=== PATIENT | female | born 1940 | race American Indian/Alaskan Native ===

== ENCOUNTER 2018-07-24 19:49 | Inpatient (IN) | payer MEDICARE ==
--- NOTE | 2018-07-24 20:23 | Cat Scan Report ---
FINAL REPORT PROCEDURE: CT HEAD/BRAIN WO CON TECHNIQUE: Computerized tomography of the head was performed without contrast material. HISTORY: neuro deficits < 6hrs or sx present upon awakening COMPARISON: No prior studies are available for comparison. FINDINGS: Skull and scalp: Normal. Paranasal sinuses: Normal. Ventricles and subarachnoid spaces: Are prominent consistent with cerebral atrophy appropriate for patient's age.. Cerebrum: Mild degree bilateral periventricular nonspecific white matter hypodensity is noted. An acute intra-axial or extra-axial hemorrhage or mass effect is not identified.. Cerebellum and brainstem: An irregular ill-defined hypodense lesion is noted involving the brian on the right side measuring 0.9 centimeters.. Vasculature: Atherosclerotic calcification is noted involving internal carotid and vertebral arteries.. Comments: None. IMPRESSION: No acute intracranial hemorrhage in 0.9 centimeter irregular ill-defined hypodense lesion of brian most likely represents a subacute versus chronic infarct. Comparison with any prior studies would be of help.
--- NOTE | 2018-07-24 21:01 | Emergency Department Report ---
ED Neuro Deficit HPI - General Chief Complaint: Neuro Symptoms/Deficit Stated Complaint: FALL,WEAKNESS, Time Seen by Provider: 07/24/18 20:25 Source: patient, family Mode of arrival: Wheelchair Limitations: Physical Limitation - History of Present Illness Initial Comments: Ms Isaac is 78 years old female with history of diabetes, hypertension and hyperlipidemia. Patient recently from [place] to live with her daughter. Patient brought to the ER accompanied by her daughter stating that her mother has been falling for the last 3 days. She stated that she had unsteady gait and she is off balance. She also stated that she noted that she has a weakness and heaviness in her left upper extremity and left leg. She also noticed that she has change in her speech she is having difficulty finding words and she is slow to speak. -: days(s) Location: speech, dysarthria, left arm, left leg Presenting Symptoms: Present: Weak/Paralyzed One Side, Unable to Speak Clearly History of same: No Place: home Severity: moderate Quality: weak, numb Improves With: none - Related Data Allergies/Adverse Reactions: Allergies Allergy/AdvReac Type Severity Reaction Status Date / Time No Known Allergies Allergy Unverified 07/24/18 20:01 ED Review of Systems ROS: Stated complaint: FALL,WEAKNESS, Other details as noted in HPI Comment: All other systems reviewed and negative Constitutional: denies: chills, fever ENT: denies: ear pain Respiratory: denies: cough, shortness of breath Cardiovascular: denies: chest pain, palpitations, dyspnea on exertion Gastrointestinal: denies: abdominal pain, nausea, vomiting Neurological: weakness, numbness, paresthesias, abnormal gait. denies: headache , confusion, vertigo ED Past Medical Hx - Past Medical History Previous Medical History?: Yes Hx Hypertension: Yes Hx Diabetes: Yes Hx of Cancer: Yes (Breast) Hx Arthritis: Yes Additional medical history: High Cholesterol, Chronic Pain - Surgical History Additional Surgical History: Hysterectomy. Implanted TENS unit Right hip - Social History Smoking Status: Never Smoker Substance Use Type: None ED Neuro Physical Exam - General Limitations: Physical Limitation General appearance: alert, in no apparent distress Suspected Stroke: Yes - Head Head exam: Present: atraumatic, normocephalic, normal inspection - Eye Eye exam: Present: normal appearance, PERRL - ENT ENT exam: Present: normal exam, normal orophraynx, mucous membranes moist, normal external ear exam - Neck Neck exam: Present: normal inspection, full ROM. Absent: tenderness, meningismus, lymphadenopathy, thyromegaly - Respiratory Respiratory exam: Present: normal lung sounds bilaterally. Absent: respiratory distress, wheezes, rales, rhonchi, stridor, chest wall tenderness, accessory muscle use, decreased breath sounds, prolonged expiratory - Cardiovascular Cardiovascular Exam: Present: regular rate, normal rhythm, normal heart sounds - GI/Abdominal GI/Abdominal exam: Present: soft, normal bowel sounds. Absent: distended, tenderness, guarding, rebound, rigid, organomegaly, mass, bruit, pulsatile mass - Extremities Exam Extremities exam: Present: normal inspection, full ROM, normal capillary refill. Absent: pedal edema, calf tenderness - Back Exam Back exam: Present: normal inspection, full ROM. Absent: tenderness, CVA tenderness (R), CVA tenderness (L), muscle spasm, paraspinal tenderness, vertebral tenderness - Neurological Exam Neurological exam: Present: alert, oriented X3 - NIHSS Assessment Interval: 24 hours post onset of symptoms +-20 minutes 1a. Level of Consciousness: alert/keenly responsive 1b. LOC Questions: answers 1 question correctly 1c. LOC Commands: performs 1 task correctly 2. Best Gaze: normal 3. Visual: no visual loss 4. Facial Palsy: normal symmetrical movement 5b. Motor Arm Right: no drift 5a. Motor Arm Left: drift 6a. Motor Leg Left: some gravity effort 6b. Motor Leg Right: no drift 7. Limb Ataxia: present 1 limb 8. Sensory: mild/moderate sensory loss 9. Best Language: mild/moderate aphasia 10. Dysarthria: mild/moderate dysarthria 11. Extinction/Inattention: no abnormality Total Score: 9 Stroke Severity: Moderate Stroke - Psychiatric Psychiatric exam: Present: normal affect, normal mood - Skin Skin exam: Present: warm, intact, normal color ED Course Vital Signs 07/24/18 07/24/18 07/24/18 19:54 20:26 20:31 Temperature 98.7 F Pulse Rate 73 69 68 Respiratory 18 12 14 Rate Blood Pressure 215/79 O2 Sat by Pulse 100 99 100 Oximetry 07/24/18 07/24/18 07/24/18 20:40 20:45 21:01 Temperature Pulse Rate 74 68 Respiratory 18 17 14 Rate Blood Pressure 166/60 O2 Sat by Pulse 100 95 Oximetry 07/24/18 07/24/18 07/24/18 21:15 21:31 21:45 Temperature Pulse Rate 67 70 68 Respiratory 13 15 9 L Rate Blood Pressure 166/60 162/76 162/76 O2 Sat by Pulse 99 93 99 Oximetry 07/24/18 22:00 Temperature Pulse Rate 70 Respiratory 17 Rate Blood Pressure 152/68 O2 Sat by Pulse 91 Oximetry - Lab Data Result diagrams: 07/24/18 22:19 07/24/18 21:00 Lab Results 07/24/18 07/24/18 07/24/18 Range/Units 19:58 21:00 21:00 WBC TNR RBC TNR Hgb TNR Hct TNR MCV TNR MCH TNR MCHC TNR RDW TNR Plt Count TNR Lymph % (Auto) TNR [place] % (Auto) TNR Eos % (Auto) TNR Baso % (Auto) TNR Lymph # TNR [place] # TNR Eos # TNR Baso # TNR Add Manual Diff TNR Seg Neutrophils % TNR Seg Neutrophils # TNR PT 14.1 (12.2-14.9) Sec. INR 1.04 (0.87-1.13) APTT < 20.0 L (24.2-36.6) Sec. Thrombin Time (15.1-19.6) Sec. Sodium (137-145) mmol/L Potassium (3.6-5.0) mmol/L Chloride (98-107) mmol/L Carbon Dioxide (22-30) mmol/L Anion Gap mmol/L BUN (7-17) mg/dL Creatinine (0.7-1.2) mg/dL Estimated GFR ml/min BUN/Creatinine Ratio % Glucose (65-100) mg/dL POC Glucose 217 H (70-105) Calcium (8.4-10.2) mg/dL Troponin T (0.00-0.029) ng/mL 07/24/18 07/24/18 07/24/18 Range/Units 21:00 21:00 22:19 WBC 6.6 RBC 4.04 Hgb 12.2 Hct 36.9 MCV 91 MCH 30 MCHC 33 RDW 14.7 Plt Count 161 Lymph % (Auto) 31.0 [place] % (Auto) 13.5 H Eos % (Auto) 2.8 Baso % (Auto) 0.8 Lymph # 2.0 [place] # 0.9 H Eos # 0.2 Baso # 0.1 Add Manual Diff Seg Neutrophils % 51.9 Seg Neutrophils # 3.4 PT (12.2-14.9) Sec. INR (0.87-1.13) APTT (24.2-36.6) Sec. Thrombin Time 14.6 L (15.1-19.6) Sec. Sodium 137 (137-145) mmol/L Potassium 4.1 (3.6-5.0) mmol/L Chloride 103.7 (98-107) mmol/L Carbon Dioxide 19 L (22-30) mmol/L Anion Gap 18 mmol/L BUN 16 (7-17) mg/dL Creatinine 0.9 (0.7-1.2) mg/dL Estimated GFR > 60 ml/min BUN/Creatinine Ratio 18 % Glucose 211 H (65-100) mg/dL POC Glucose (70-105) Calcium 9.7 (8.4-10.2) mg/dL Troponin T < 0.010 (0.00-0.029) ng/mL - EKG Data -: EKG Interpreted by Ok EKG shows normal: sinus rhythm Rate: normal Interpretation: no acute changes - Radiology Data Radiology results: report reviewed Referring Physician: EMANUEL MORENO Patient Name: MELISSA ISAAC Date of : 1940 Sex: Female Report Date: 2018-07-24 Report Status: [place] [address] Cat Scan Report Signed Patient: MELISSA ISAAC MR#: [id number] : 1940 Acct:[id number] Age/Sex: 78 / F ADM Date: 07/24/18 Loc: ED Attending Dr: Ordering Physician: EMANUEL MORENO MD Date of Service: 07/24/18 Procedure(s): CT head/brain wo con Accession Number(s): [id number] cc: EMANUEL MORENO MD FINAL REPORT PROCEDURE: CT HEAD/BRAIN WO CON TECHNIQUE: Computerized tomography of the head was performed without contrast material. HISTORY: neuro deficits lt; 6hrs or sx present upon awakening COMPARISON: No prior studies are available for comparison. FINDINGS: Skull and scalp: Normal. Paranasal sinuses: Normal. Ventricles and subarachnoid spaces: Are prominent consistent with cerebral atrophy appropriate for patient's age.. Cerebrum: Mild degree bilateral periventricular nonspecific white matter hypodensity is noted. An acute intra-axial or extra-axial hemorrhage or mass effect is not identified.. Cerebellum and brainstem: An irregular ill-defined hypodense lesion is noted involving the brian on the right side measuring 0.9 centimeters.. Vasculature: Atherosclerotic calcification is noted involving internal carotid and vertebral arteries.. Comments: None. IMPRESSION: No acute intracranial hemorrhage in 0.9 centimeter irregular ill-defined hypodense lesion of brian most likely represents a subacute versus chronic infarct. Comparison with any prior studies would be of help. Transcribed By: [facility] Dictated By: RAJESH WEN Electronically Authenticated By: RAJESH WEN Signed Date/Time: 07/24/182022 Referring Physician: YUSRA DYKES Patient Name: MELISSA ISAAC Date of : 1940 Sex: Female Report Date: 2018-07-24 Report Status: Finalized Findings [facility] [address] [place] [address] XRay Report Signed Patient: MELISSA ISAAC MR#: [id number] : 1940 Acct:[id number] Age/Sex: 78 / F ADM Date: 07/24/18 Loc: ED Attending Dr: Ordering Physician: YUSRA DYKES Date of Service: 07/24/18 Procedure(s): XR hip 2-3V LT Accession Number(s): [id number] cc: YUSRA DYKES Fluoro Time In Minutes: FINAL REPORT PROCEDURE: XR HIP 2-3V LT TECHNIQUE: LEFT hip radiographs, 2 views each, including AP view of the pelvis. HISTORY: left hip pain COMPARISON: No prior studies are available for comparison. FINDINGS: Fracture (s) and/or Dislocation(s): None . Joint space(s): There is mild degree narrowing of bilateral hip joint spaces with mild degree osteophyte formation. Bilateral facet degenerative changes are noted at L4-5. Soft tissues: Normal. Bone mineralization: Normal. Foreign bodies: None. IMPRESSION: No acute fracture Osteoarthritis bilateral hip joints Lower lumbar facet arthropathy Transcribed By: [facility] [place] Dictated By: RAJESH WEN Electronically Authenticated By: RAJESH WEN Signed Date/Time: 07/24/182206 DD/ 06 TD/TT: 07/24/182206 DD/ 22 TD/TT: 07/24/182022 Referring Physician: YUSRA DYKES Patient Name: MELISSA ISAAC Date of : 1940 Sex: Female Report Date: 2018-07-24 Report Status: Finalized Findings [facility] [address] [place] [address] XRay Report Signed Patient: MELISSA ISAAC MR#: [id number] : 1940 Acct:[id number] Age/Sex: 78 / F ADM Date: 07/24/18 Loc: ED Attending Dr: Ordering Physician: YUSRA DYKES Date of Service: 07/24/18 Procedure(s): XR chest 1V ap Accession Number(s): [id number] cc: YUSRA DYKES Fluoro Time In Minutes: FINAL REPORT PROCEDURE: XR CHEST 1V AP TECHNIQUE: Chest radiograph anteroposterior view. CPT 69957 HISTORY: stroke COMPARISON: No prior studies are available for comparison. FINDINGS: Heart: Normal. Mediastinum/Vessels: Normal. Lungs/Pleural space: There is mild degree prominence of interstitial markings. A central retrocardiac density is identified measuring approximately 4 centimeters on the right side. There are no confluent infiltrates. Pleural spaces are clear. A small radiopaque metallic density measuring about 2 millimeters is noted projected over the left lower hemithorax.. Bony thorax: No acute osseous abnormality. Life support devices: None. IMPRESSION: Prominent interstitial markings most likely represent interstitial edema versus interstitial fibrosis. 4 centimeter right retrocardiac density may represent focal eventration of diaphragm versus hiatal hernia versus a mass lesion. A two view chest study is recommended for further evaluation.. Transcribed By: [facility] [place] Dictated By: RAJESH WEN Electronically Authenticated By: RAJESH WEN Signed Date/Time: 07/24/182200 DD/ 00 TD/TT: 07/24/182200 - Medical Decision Making Ms Isaac is 78 years old female with history of diabetes, hypertension and hyperlipidemia. Patient recently from [place] to live with her daughter. Patient brought to the ER accompanied by her daughter stating that her mother has been falling for the last 3 days. She stated that she had unsteady gait and she is off balance. She also stated that she noted that she has a weakness and heaviness in her left upper extremity and left leg. She also noticed that she has change in her speech she is having difficulty finding words and she is slow to speak. Patient CT scan brain showed a subacute infarct. I discussed the patient is Dr. Dunia Garcia, she agreed to admit the patient to medical service for stroke workup. Critical Care Time: Yes Critical care time in (mins) excluding proc time.: 30 Critical care attestation.: If time is entered above; I have spent that time in minutes in the direct care of this critically ill patient, excluding procedure time. ED Disposition Clinical Impression: CVA (cerebral vascular accident) Disposition: -09 OP ADMIT IP TO THIS HOSP Is pt being admited?: Yes Condition: Stable
[2018-07-24] MEDS ORDERED: BABY ASPIRIN PO ONE (21:04)
[2018-07-24 21:25] LABS: Hematocrit TNR % (30.3-42.9); Hemoglobin TNR gm/dl (10.1-14.3); Mean Corpuscular HGB Conc TNR % (30-34); Mean Corpuscular Hemoglobin TNR pg (28-32); Mean Corpuscular Volume TNR fl (79-97); Platelet Count TNR K/mm3 (140-440); Red Blood Count TNR M/mm3 (3.65-5.03); Red Cell Distribution Width TNR % (13.2-15.2)
[2018-07-24 21:26] LABS: Basophils % (Auto) TNR % (0.0-1.8); Eosinophils % (Auto) TNR % (0.0-4.3); Lymphocytes # (Auto) TNR K/mm3 (1.2-5.4); Lymphocytes % (Auto) TNR % (13.4-35.0); Mean Platelet Volume TNR fl (6-12); Monocytes # (Auto) TNR K/mm3 (0.0-0.8); Monocytes % (Auto) TNR % (0.0-7.3)
[2018-07-24 21:27] LABS: Basophils # (Auto) TNR K/mm3 (0.0-0.1); Eosinophils # (Auto) TNR K/mm3 (0.0-0.4)
[2018-07-24 21:28] LABS: BUN/Creatinine Ratio 18; Blood Urea Nitrogen 16 mg/dL (7-17); Calcium 9.7 mg/dL (8.4-10.2); Hemolysis Index 17; INR 1.04 (0.87-1.13)
[2018-07-24 21:35] LABS: Partial Thromboplastin Time < 20.0 Sec. (24.2-36.6)
--- NOTE | 2018-07-24 22:02 | XRay Report ---
FINAL REPORT PROCEDURE: XR CHEST 1V AP TECHNIQUE: Chest radiograph anteroposterior view. CPT 23619 HISTORY: stroke COMPARISON: No prior studies are available for comparison. FINDINGS: Heart: Normal. Mediastinum/Vessels: Normal. Lungs/Pleural space: There is mild degree prominence of interstitial markings. A central retrocardiac density is identified measuring approximately 4 centimeters on the right side. There are no confluent infiltrates. Pleural spaces are clear. A small radiopaque metallic density measuring about 2 millimeters is noted projected over the left lower hemithorax.. Bony thorax: No acute osseous abnormality. Life support devices: None. IMPRESSION: Prominent interstitial markings most likely represent interstitial edema versus interstitial fibrosis. 4 centimeter right retrocardiac density may represent focal eventration of diaphragm versus hiatal hernia versus a mass lesion. A two view chest study is recommended for further evaluation..
--- NOTE | 2018-07-24 22:08 | XRay Report ---
FINAL REPORT PROCEDURE: XR HIP 2-3V LT TECHNIQUE: LEFT hip radiographs, 2 views each, including AP view of the pelvis. HISTORY: left hip pain COMPARISON: No prior studies are available for comparison. FINDINGS: Fracture (s) and/or Dislocation(s): None . Joint space(s): There is mild degree narrowing of bilateral hip joint spaces with mild degree osteophyte formation. Bilateral facet degenerative changes are noted at L4-5. Soft tissues: Normal. Bone mineralization: Normal. Foreign bodies: None. IMPRESSION: No acute fracture Osteoarthritis bilateral hip joints Lower lumbar facet arthropathy
[2018-07-24] MEDS ORDERED: MORPHINE IV ONE (22:15)
[2018-07-24] MEDS ORDERED: ZOFRAN IV ONE (22:15)
[2018-07-24 22:47] LABS: Basophils # (Auto) 0.1 K/mm3 (0.0-0.1); Basophils % (Auto) 0.8 % (0.0-1.8); Eosinophils # (Auto) 0.2 K/mm3 (0.0-0.4); Eosinophils % (Auto) 2.8 % (0.0-4.3); Hematocrit 36.9 % (30.3-42.9); Hemoglobin 12.2 gm/dl (10.1-14.3); Mean Corpuscular HGB Conc 33 % (30-34); Mean Corpuscular Hemoglobin 30 pg (28-32); Mean Corpuscular Volume 91 fl (79-97); Monocytes # (Auto) 0.9 K/mm3 (0.0-0.8); Monocytes % (Auto) 13.5 % (0.0-7.3); Platelet Count 161 K/mm3 (140-440); Red Blood Count 4.04 M/mm3 (3.65-5.03); Red Cell Distribution Width 14.7 % (13.2-15.2)
--- NOTE | 2018-07-24 23:07 | History and Physical Report ---
History of Present Illness Date of examination: 07/24/18 History of present illness: 78-year-old woman with a history of breast cancer, hypertension, diabetes, hyperlipidemia comes emergency room for evaluation of left-sided weakness and slurred speech to started on Wednesday. The patient had refused to come to the hospital at the onset of her symptoms. Review of systems Constitutional: no weight loss, chills, fever Ears, eyes, nose, mouth and throat: no nasal congestion, no nasal discharge, no sinus pressure, no vision change, no red eye. Neck: No neck pain or rigidity. Cardiovascular: no chest pain, palpitations Respiratory: no cough, shortness of breath Gastrointestinal: no abdominal pain hematochezia Genitourinary : no frequency , no hematuria Musculoskeletal: no joint swelling or muscle ache Integumentary: no rash, no pruritis Neurological: no parathesias, no numbness Endocrine: no cold or heat intolerance, no polyuria or polydipsia Hematologic/Lymphatic: no easy bruising, no easy bleeding, no gland swelling Allergic/Immunologic: no urticaria, no angioedema. PAST MEDICAL HISTORY: breast cancer, hypertension, diabetes, hyperlipidemia PAST SURGICAL HISTORY: Hysterectomy SOCIAL HISTORY: No alcohol, no drugs, tobacco FAMILY HISTORY: Hypertension Medications and Allergies Allergies Allergy/AdvReac Type Severity Reaction Status Date / Time No Known Allergies Allergy Verified 07/24/18 23:08 Home Medications Medication Instructions Recorded Confirmed Last Taken Type Anastrozole [Arimidex] 1 mg PO QDAY 07/24/18 07/24/18 Unknown History Atorvastatin Calcium 80 mg PO DAILY 07/24/18 07/24/18 Unknown History Carvedilol [Coreg] 25 mg PO BID 07/24/18 07/24/18 Unknown History Insulin Aspart [Novolog] 25 units SQ BID 07/24/18 07/24/18 Unknown History Insulin Detemir [Levemir VIAL] 0 unit SQ QHS 07/24/18 07/24/18 Unknown History Milk Thistle 240 mg PO DAILY 07/24/18 07/24/18 Unknown History Naproxen 500 mg PO Q12HR 07/24/18 07/24/18 Unknown History Sertraline [Zoloft] 25 mg PO QDAY 07/24/18 07/24/18 Unknown History Exam - Physical Exam Narrative exam: Gen. appearance: Patient lying in bed, no apparent distress HEENT: Normocephalic, atraumatic, pupils equally round and reactive to light, extraocular movement intact, and no sclericterus,. No JVD or thyromegaly or nodule,neck supple, no carotid bruit ,mucous membranes moist, no exudate or erythema Heart: S1, S2, regular rate and rhythm Lungs: Clear bilaterally, breathing comfortable Abdomen: Positive bowel sounds, tender LLQ, nondistended, no organomegaly Extremity:no edema cyanosis, clubbing Skin: no rash, dry, warm Neuro: Oriented 3, cranial nerves II-12 intact, speech is slurred, left-sided weakness 3/5and sensory intact - Constitutional Vitals: Temp Pulse Resp BP Pulse Ox 98.7 F 70 17 152/68 91 07/24/18 19:54 07/24/18 22:00 07/24/18 22:00 07/24/18 22:00 07/24/18 22:00 Results - Labs CBC & Chem 7: 07/24/18 22:19 07/24/18 21:00 Labs: Abnormal lab results 07/24/18 07/24/18 07/24/18 Range/Units 19:58 21:00 21:00 [place] % (Auto) (0.0-7.3) % [place] # (0.0-0.8) K/mm3 APTT < 20.0 L (24.2-36.6) Sec. Thrombin Time (15.1-19.6) Sec. Carbon Dioxide 19 L (22-30) mmol/L Glucose 211 H (65-100) mg/dL POC Glucose 217 H (70-105) 07/24/18 07/24/18 Range/Units 21:00 22:19 [place] % (Auto) 13.5 H (0.0-7.3) % [place] # 0.9 H (0.0-0.8) K/mm3 APTT (24.2-36.6) Sec. Thrombin Time 14.6 L (15.1-19.6) Sec. Carbon Dioxide (22-30) mmol/L Glucose (65-100) mg/dL POC Glucose (70-105) - Imaging and Cardiology CT Scan - head: report reviewed Assessment and Plan xray of the hip reviewed Assessment Acute CVA Abdominal pain Hypertension Diabetes History of breast cancer Hyperlipidemia Plan Admit to medicine Obtain MRI, carotid, echo Consult neurology, physical and occupational therapy Doing yard checks, cell screen Start plavix, statin, IV hydralazine for blood pressure control J fingersticks initiate insulin sliding scale Check CAT scan of the abdomen, tender in the left lower quadrant DVT prophylaxis
[2018-07-24] MEDS ORDERED: SODIUM CHLORIDE FLUSH SYRINGE 10 ML IV PRN (23:39)
[2018-07-24] MEDS ORDERED: ZOFRAN IV PRN (23:39)
[2018-07-24] MEDS ORDERED: APRESOLINE ONE (23:58)
[2018-07-25] MEDS: APRESOLINE IV PRN ×3 (00:12→17:01)
--- NOTE | 2018-07-25 00:30 | Cat Scan Report ---
FINAL REPORT EXAM: CT ABDOMEN PELVIS WO CON HISTORY: abd pain, llq TECHNIQUE: Routine axial imaging was obtained of the abdomen and pelvis without IV contrast. Sagittal and coronal reconstructions were reviewed. FINDINGS: The lung bases are negative for infiltrates or effusions. There is a small hiatal hernia. The liver, gallbladder, biliary tree, pancreas, spleen, and adrenal glands appear normal. The kidneys show no evidence of stones or hydronephrosis. There is calcification of the abdominal aorta which is normal caliber. The bowel loops reveal numerous uncomplicated diverticula in the colon. There is residual oral contrast within the colon. There is no evidence of diverticulitis. The appendix is not seen. There is no evidence of free fluid or adenopathy. The uterus has been removed. The bladder appears normal. The skeletal structures reveal extensive multilevel disc degeneration in the lumbar spine with chronic compression fracture of L3. IMPRESSION: Colonic diverticulosis. No evidence of diverticulitis. No acute process in the abdomen and pelvis. Small hiatal hernia. No evidence of renal stone or hydronephrosis. Hysterectomy. Appendix not seen. Extensive arthritic changes in the lumbar spine.
[2018-07-25] MEDS ORDERED: D50W (25GM) Syringe IV PRN (01:52)
[2018-07-25] MEDS ORDERED: APRESOLINE IV ONE (02:35)
[2018-07-25 07:55] LABS: Chol/HDL Ratio 2.66 %
[2018-07-25] MEDS: HumaLOG SUB-Q SCH ×4 (08:27→23:08)
[2018-07-25] MEDS ORDERED: NON-FORMULARY (Anastrozole [Arimidex] 1 MG) PO SCH (10:00)
[2018-07-25] MEDS ORDERED: ASPIRIN PR SCH (10:00)
[2018-07-25] MEDS ORDERED: NON-FORMULARY (Atorvastatin Calcium [Atorvastatin Calcium] 80 MG) PO SCH (10:00)
[2018-07-25] MEDS ORDERED: LOVENOX SUB-Q SCH (10:00)
[2018-07-25] MEDS: PLAVIX PO SCH (10:56)
[2018-07-25] MEDS: ZOLOFT PO SCH (10:57)
[2018-07-25] MEDS: LOVENOX SUB-Q SCH (11:03)
[2018-07-25] MEDS ORDERED: AFLURIA QUAD 2018-2019 SYRINGE IM ONE (12:00)
[2018-07-25] MEDS: MORPHINE IV PRN ×2 (13:36→20:39)
--- NOTE | 2018-07-25 16:04 | Progress Note ---
Assessment and Plan Assessment and plan: 78-year-old woman with a history of breast cancer, hypertension, diabetes, hyperlipidemia comes emergency room for evaluation of left-sided weakness and slurred speech to started on Wednesday. The patient had refused to come to the hospital at the onset of her symptoms. Acute CVA - CT head showed that appointment centimeter hypodense lesion in the right brian subacute versus chronic - Carotid Doppler is a 50% stenosis, echo and CTA is pending, we can't do MRI because of AICD - Speech and swallow evaluation, PT/OT, Neurology consult - On Plavix and statin Diabetes mellitus - Sliding scale insulin Hypertension - permissive hypertension, on hydralazine PRN when it is too high Dementia - Supportive care DVT prophylaxis - On Lovenox Disposition - Patient may need rehab once work up and evaluation is completed History Interval history: Patient was seen and evaluated this morning, patient has left sided weakness. Hospitalist Physical - Physical exam Narrative exam: Not in cardiopulmonary distress. The patient is obese. Vital signs as documented. Head exam is unremarkable. No scleral icterus . Neck is without jugular venous distension, thyromegaly, or carotid bruits. Lungs are clear to auscultation. Cardiac exam reveals regular rate and Rhythm. First and second heart sounds normal. No murmurs, rubs or gallops. Abdominal exam reveals normal bowel sounds, no masses, no organomegaly and no aortic enlargement. Extremities are nonedematous and both femoral and pedal pulses are normal. 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 - Constitutional Vitals: Temp Pulse Resp BP Pulse Ox 98.6 F 61 19 142/48 96 07/25/18 10:32 07/25/18 13:00 07/25/18 10:32 07/25/18 10:32 07/25/18 10:32 Results - Labs CBC & Chem 7: 07/24/18 22:19 07/24/18 21:00 Labs: Laboratory Last Values WBC 6.6 K/mm3 (4.5-11.0) 07/24/18 22:19 RBC 4.04 M/mm3 (3.65-5.03) 07/24/18 22:19 Hgb 12.2 gm/dl (10.1-14.3) 07/24/18 22:19 Hct 36.9 % (30.3-42.9) 07/24/18 22:19 MCV 91 fl (79-97) 07/24/18 22:19 MCH 30 pg (28-32) 07/24/18 22:19 MCHC 33 % (30-34) 07/24/18 22:19 RDW 14.7 % (13.2-15.2) 07/24/18 22:19 Plt Count 161 K/mm3 (140-440) 07/24/18 22:19 Lymph % (Auto) 31.0 % (13.4-35.0) 07/24/18 22:19 [place] % (Auto) 13.5 % (0.0-7.3) H 07/24/18 22:19 Eos % (Auto) 2.8 % (0.0-4.3) 07/24/18 22:19 Baso % (Auto) 0.8 % (0.0-1.8) 07/24/18 22:19 Lymph # 2.0 K/mm3 (1.2-5.4) 07/24/18 22:19 [place] # 0.9 K/mm3 (0.0-0.8) H 07/24/18 22:19 Eos # 0.2 K/mm3 (0.0-0.4) 07/24/18 22:19 Baso # 0.1 K/mm3 (0.0-0.1) 07/24/18 22:19 Add Manual Diff TNR 07/24/18 21:00 Seg Neutrophils % 51.9 % (40.0-70.0) 07/24/18 22:19 Seg Neutrophils # 3.4 K/mm3 (1.8-7.7) 07/24/18 22:19 PT 14.1 Sec. (12.2-14.9) 07/24/18 21:00 INR 1.04 (0.87-1.13) 07/24/18 21:00 APTT < 20.0 Sec. (24.2-36.6) L 07/24/18 21:00 Thrombin Time 14.6 Sec. (15.1-19.6) L 07/24/18 21:00 Sodium 137 mmol/L (137-145) 07/24/18 21:00 Potassium 4.1 mmol/L (3.6-5.0) 07/24/18 21:00 Chloride 103.7 mmol/L (98-107) 07/24/18 21:00 Carbon Dioxide 19 mmol/L (22-30) L 07/24/18 21:00 Anion Gap 18 mmol/L 07/24/18 21:00 BUN 16 mg/dL (7-17) 07/24/18 21:00 Creatinine 0.9 mg/dL (0.7-1.2) 07/24/18 21:00 Estimated GFR > 60 ml/min 07/24/18 21:00 BUN/Creatinine Ratio 18 % 07/24/18 21:00 Glucose 211 mg/dL (65-100) H 07/24/18 21:00 POC Glucose 259 (70-105) H 07/25/18 06:04 Calcium 9.7 mg/dL (8.4-10.2) 07/24/18 21:00 Troponin T < 0.010 ng/mL (0.00-0.029) 07/24/18 21:00 Triglycerides 121 mg/dL (2-149) 07/25/18 06:35 Cholesterol 141 mg/dL (50-199) 07/25/18 06:35 LDL Cholesterol Direct 78 mg/dL (50-130) 07/25/18 06:35 HDL Cholesterol 53 mg/dL (40-59) 07/25/18 06:35 Cholesterol/HDL Ratio 2.66 % 07/25/18 06:35
[2018-07-25] MEDS ORDERED: XANAX PO SCH (18:00)
--- NOTE | 2018-07-25 20:15 | Consultation ---
History of Present Illness Consult date: 07/25/18 Requesting physician: SONI GERMAN Reason for Consult: stroke Chief complaint: legs giving out kellee left, slurred speech History of present illness: This 78-year-old -[place] female states that 3 nights ago her legs gave out on her and did so again the next night. The first time she was trying to get out of bed and her legs collapsed especially on the left. She has had some numbness of her hands. She hit her head one of these times. She's had some slurring of speech still noticeable to her family. CT scan shows old right pontine lacune and some bilateral white matter disease with mild cerebellar and moderate cerebral atrophy. She is very hard of hearing and the hearing aids don 't help her. Says she is on something that has aspirin in it but isn't on aspirin itself though is on a statin. Past History Past Medical History: diabetes, hypertension, hyperlipidemia Past Surgical History: mastectomy (breast cancer surgery 2 years ago followed by chemotherapy and radiation, finished chemotherapy a year ago), Other (lumbar spine surgery in [facility] 8-10 years ago. Implantation of right hip TENS unit apparently some years ago which was redone this past year in [place] by orthopedist Dr. 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 denies: smoking, alcohol abuse, prescription drug abuse, IV drug use Family history: hypertension (several siblings), stroke (mother and sister and sororal niece (the one with epilepsy)), other (epilepsy and sororal niece. Brain aneurysm in her daughter.) Medications and Allergies Allergies Allergy/AdvReac Type Severity Reaction Status Date / Time No Known Allergies Allergy Verified 07/24/18 23:08 Home Medications Medication Instructions Recorded Confirmed Last Taken Type Anastrozole [Arimidex] 1 mg PO QDAY 07/24/18 07/24/18 Unknown History Atorvastatin Calcium 80 mg PO DAILY 07/24/18 07/24/18 Unknown History Carvedilol [Coreg] 25 mg PO BID 07/24/18 07/24/18 Unknown History Insulin Aspart [Novolog] 25 units SQ BID 07/24/18 07/24/18 Unknown History Insulin Detemir [Levemir VIAL] 0 unit SQ QHS 07/24/18 07/24/18 Unknown History Milk Thistle 240 mg PO DAILY 07/24/18 07/24/18 Unknown History Naproxen 500 mg PO Q12HR 07/24/18 07/24/18 Unknown History Sertraline [Zoloft] 25 mg PO QDAY 07/24/18 07/24/18 Unknown History Active Meds: Active Medications Alprazolam (Xanax) 2 mg PO UNIVERSITY ADMINISTRATOR [facility] Atorvastatin Calcium (Lipitor) 80 mg PO DAILY [facility] Last Admin: 07/25/18 10:56 Dose: Not Given Clopidogrel Bisulfate (Plavix) 75 mg PO QDAY [facility] Last Admin: 07/25/18 10:56 Dose: Not Given Dextrose (D50w (25gm) Syringe) 50 ml IV PRN PRN PRN Reason: Hypoglycemia Enoxaparin Sodium (Lovenox) 40 mg SUB-Q QDAY@1000 [facility] Last Admin: 07/25/18 11:03 Dose: 40 mg Hydralazine HCl (Apresoline) 5 mg IV Q6HR PRN PRN Reason: Hypertension Last Admin: 07/25/18 17:01 Dose: 5 mg Insulin Human Lispro (Humalog) 0 unit SUB-Q [facility]; Protocol Last Admin: 07/25/18 17:00 Dose: 3 unit Miscellaneous Medication (Anastrozole [Arimidex]) 1 mg PO QDAY [facility] Morphine Sulfate (Morphine) 2 mg IV Q4H PRN PRN Reason: Pain, Moderate (4-6) Last Admin: 07/25/18 13:36 Dose: 2 mg Ondansetron HCl (Zofran) 4 mg IV Q4H PRN PRN Reason: Nausea And Vomiting Sertraline HCl (Zoloft) 25 mg PO QDAY [facility] Last Admin: 07/25/18 10:57 Dose: Not Given Sodium Chloride (Sodium Chloride Flush Syringe 10 Ml) 10 ml IV PRN PRN PRN Reason: LINE FLUSH Review of Systems All systems: negative (right frontal headaches with nausea and photophobia. Lightheadedness but not daily. Rule out snoring at times occasional pauses, dozing a lot for some years, not driving currently. Remote and short-term memory problems for 2 years.) Physical Examination - Vital Signs Vital Signs: Vital Signs Temp Pulse Resp BP Pulse Ox 98.7 F 73 18 215/79 100 07/24/18 19:54 07/24/18 19:54 07/24/18 19:54 07/24/18 19:54 07/24/18 19:54 - Physical Exam Narrative exam: General Appearance: well developed but moderately obese (per BMI) late 70s -[place] female in NAD, very hard of hearing, accompanied by her brother , daughter and [id number].. HEENT: atraumatic, normocephalic; no bruits, 2+ Toni without soreness or induration or enlargement, sclerae nonicteric. Oropharynx pink and moist. Neck: supple, no bruits. Heart: no murmur or extra sounds. Extremities: no clubbing, cyanosis or edema. 2+ dorsalis pedis pulses bilaterally. Neurologic Exam: Mental Status: Awake, alert, oriented X 3, speech is clear, names pen and tip of pen, and abstracts well. Names President and Manager Professional Development, serial 7's intact, no right-left confusion, gets 3 of 3 objects at 3 minutes, spells WORLD backwards correctly. Cranial Nerves: queen full, no papilledema, SVPs present, PERRLA, EOMs full without nystagmus or diplopia, facial sensation intact to pinprick and light touch, no facial weakness, Sanchez is midline, palate rises symmetrically to phonation, gags are slightly positive, shoulder shrug is 5 right and 4- left, tongue protrudes midline. Cerebellar: finger to nose dysmetric right more than left but quite reach on the left, heel to norwood intact right but cannot do on the left due to weakness. Sensory: Decreased to light touch and pinprick left side, intact vibrations. Double simultaneous stimulation is intact in lower legs but cannot feel the light touch in either foot with eyes closed. Motor Exam Upper Extremities: no drift or pronation, lifts left arm slowly but has to be helped to a vertical position though cannot reach her face, Jez are slow on the left. Painter And Grader Cork is 5 right and 4- left, tone is normal. No atrophy or fasciculations are noted visually. Motor Exam Lower Extremities: Moderate left leg lag,, lifts right leg 4 inches out bed and left leg 1 inch off the bed, iliopsoas is 5 right and 4+ left, quadriceps is 4+ right and 4- left, anterior tibials are 4+, gastrocnemius is 5 right and 5- left. Jez intact. Tone is normal. No atrophy or fasciculations are noted visually. Reflexes: Palmomental is positive on the right, snout is positive and jaw jerk is negative. Triceps are trace, biceps are 1 and brachioradialis are trace bilaterally. Mark's is negative bilaterally. Knee jerks are 0 becoming trace bilaterally with reinforcement and ankle jerks are 0 bilaterally even with reinforcement and without clonus. Toes are upgoing bilaterally to Babinski testing. - Assessment Assessment Interval: 24 hours post onset of symptoms +-20 minutes - Level of Consciousness 1a. Level of Consciousness: alert/keenly responsive - LOC Questions 1b. LOC Questions: answers 1 question correctly - LOC Command 1c. LOC Commands: performs 1 task correctly - Best Gaze 2. Best Gaze: normal - Visual 3. Visual: no visual loss - Facial Palsy 4. Facial Palsy: normal symmetrical movement - Motor Arm 5b. Motor Arm Right: no drift - Motor Leg 6a. Motor Leg Left: some gravity effort - Limb Ataxia 7. Limb Ataxia: present 1 limb - Sensory 8. Sensory: mild/moderate sensory loss - Best Language 9. Best Language: mild/moderate aphasia - Dysarthria 10. Dysarthria: mild/moderate dysarthria - Extinction and Inattention 11. Extinction/Inattention: no abnormality Results - Laboratory Findings CBC and BMP: 07/24/18 22:19 07/24/18 21:00 Abnormal Lab Findings: Abnormal Labs 07/24/18 07/24/18 07/24/18 19:58 21:00 21:00 [place]cd[place] % (Auto) Mcdonald # APTT < 20.0 L Thrombin Time Carbon Dioxide 19 L Glucose 211 H POC Glucose 217 H 07/24/18 07/24/18 07/25/18 21:00 22:19 06:04 [place]cd[place] % (Auto) 13.5 H Mcdonald # 0.9 H APTT Thrombin Time 14.6 L Carbon Dioxide Glucose POC Glucose 259 H 07/25/18 15:59 [place]cdonald % (Auto) Mcdonald # APTT Thrombin Time Carbon Dioxide Glucose POC Glucose 197 H Assessment and Plan Impression: 1. Left hemiparesis 2. Hypertension 3. Hyperlipidemia Plan: 1. Has been changed to Plavix which is reasonable. 2. I have ordered brain MRI asking at the radiologist be consulted as to whether it can be done since head is a fair distance from the implanted stimulator. I have sent a message to Dr. German suggesting he asked Dr. Heller of orthopedics whether he has a way to turn the stimulator back on since it apparently is not working. If not, Dr. German or covering hospitalist should check with Dr. Hugo, her orthopedist in [place]. 3. She is claustrophobic so I have ordered alprazolam for the brain MRI if it can be done. 60 minutes spent including discussion of reason to try to get brain MRI and need to consult orthopedics about turning the stimulator back on after MRI. If MRI cannot be done here, could be done likely at [place] where they are familiar with patients with implanted devices including pacemakers and defibrillators. Thank you for an interesting consultation on this pleasant late 70s lady.
[2018-07-26] MEDS: ZOLOFT PO SCH (10:42)
[2018-07-26] MEDS: PLAVIX PO SCH (10:43)
[2018-07-26] MEDS: MORPHINE IV PRN ×2 (10:43→16:09)
[2018-07-26] MEDS: LOVENOX SUB-Q SCH (10:44)
[2018-07-26] MEDS: HumaLOG SUB-Q SCH ×5 (10:45→23:52)
--- NOTE | 2018-07-26 10:47 | Cat Scan Report ---
CTA NECK: HISTORY: Stroke. TECHNIQUE: Helical CT following IV contrast. Sagittal and coronal reformatted images. 3D volume rendering technique. Stenosis was calculated using NASCET criteria. FINDINGS: The visualized aortic arch, innominate artery and proximal bilateral subclavian arteries are widely patent with less than 20% stenosis. Within the right carotid system: There is less than 20% stenosis. Within the left carotid system: Moderate irregular calcified plaque is identified in the left carotid bulb extending to the proximal left ICA. Stenosis in this area measures at least 40% by NASCET criteria. There is less than 20% stenosis throughout the remainder of the left carotid system.. The cervical vertebral arteries are patent with less than 20% stenosis. The left vertebral artery arises from the aortic arch. IMPRESSION: 40-50% stenosis in the proximal left ICA. See above. Consider correlation with carotid Doppler.
--- NOTE | 2018-07-26 10:50 | Cat Scan Report ---
CTA HEAD: HISTORY: Stroke. TECHNIQUE: Helical CT images after IV contrast with 0.625mm reformations. Sagittal and coronal reformats. Rotational MIP images. 3D volume rendering technique. FINDINGS: The arterial structures of the anterior and posterior circulations are patent throughout. No evidence for stenosis, occlusion or aneurysm. Moderate to large left posterior communicating artery is noted. IMPRESSION: Unremarkable CTA head.
--- NOTE | 2018-07-26 18:15 | Progress Note ---
Assessment and Plan Assessment and plan: 78-year-old woman with a history of breast cancer, hypertension, diabetes, hyperlipidemia comes emergency room for evaluation of left-sided weakness and slurred speech to started on Wednesday. The patient had refused to come to the hospital at the onset of her symptoms. Acute CVA - CT head showed that appointment centimeter hypodense lesion in the right brian subacute versus chronic - Carotid Doppler is a 50% stenosis, echo and CTA is pending, we can't do MRI because of Tens unit - Repeat CT negative - Speech and swallow evaluation, PT/OT, Neurology consult NOTED, - On Plavix and statin Acute on chronic Low back pain - Chronic more than acute per family -Orthopedics to assess the functionality of the implanted tens unit - Pain management and bowel regimen Diabetes mellitus - Sliding scale insulin Hypertension - permissive hypertension, on hydralazine PRN when it is too high Dementia - Supportive care DVT prophylaxis - On Lovenox Disposition - Patient may need rehab once work up and evaluation is completed - Anticipate in AM to SNF. awaiting Ortho eval History Interval history: Patient seen and examined, remains with abdominal pain bilateral and back pain. Daughters at bedside. Pain rated a 10/10 in intensity Hospitalist Physical - Physical exam Narrative exam: Not in cardiopulmonary distress. The patient is obese. Vital signs as documented. Head exam is unremarkable. No scleral icterus . Neck is without jugular venous distension, thyromegaly, or carotid bruits. Lungs are clear to auscultation. Cardiac exam reveals regular rate and Rhythm. First and second heart sounds normal. No murmurs, rubs or gallops. Abdominal exam reveals normal bowel sounds, no masses, no organomegaly and no aortic enlargement. Tender bilateral lower quadrants Extremities are nonedematous and both femoral and pedal pulses are normal. 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 - Constitutional Vitals: Temp Pulse Resp BP Pulse Ox 98.2 F 69 18 188/67 96 07/26/18 11:24 07/26/18 14:05 07/26/18 11:24 07/26/18 11:24 07/26/18 11:24 Results - Labs CBC & Chem 7: 07/24/18 22:19 07/24/18 21:00 Labs: Laboratory Last Values WBC 6.6 K/mm3 (4.5-11.0) 07/24/18 22:19 RBC 4.04 M/mm3 (3.65-5.03) 07/24/18 22:19 Hgb 12.2 gm/dl (10.1-14.3) 07/24/18 22:19 Hct 36.9 % (30.3-42.9) 07/24/18 22:19 MCV 91 fl (79-97) 07/24/18 22:19 MCH 30 pg (28-32) 07/24/18 22:19 MCHC 33 % (30-34) 07/24/18 22:19 RDW 14.7 % (13.2-15.2) 07/24/18 22:19 Plt Count 161 K/mm3 (140-440) 07/24/18 22:19 Lymph % (Auto) 31.0 % (13.4-35.0) 07/24/18 22:19 [place] % (Auto) 13.5 % (0.0-7.3) H 07/24/18 22:19 Eos % (Auto) 2.8 % (0.0-4.3) 07/24/18 22:19 Baso % (Auto) 0.8 % (0.0-1.8) 07/24/18 22:19 Lymph # 2.0 K/mm3 (1.2-5.4) 07/24/18 22:19 [place] # 0.9 K/mm3 (0.0-0.8) H 07/24/18 22:19 Eos # 0.2 K/mm3 (0.0-0.4) 07/24/18 22:19 Baso # 0.1 K/mm3 (0.0-0.1) 07/24/18 22:19 Add Manual Diff TNR 07/24/18 21:00 Seg Neutrophils % 51.9 % (40.0-70.0) 07/24/18 22:19 Seg Neutrophils # 3.4 K/mm3 (1.8-7.7) 07/24/18 22:19 PT 14.1 Sec. (12.2-14.9) 07/24/18 21:00 INR 1.04 (0.87-1.13) 07/24/18 21:00 APTT < 20.0 Sec. (24.2-36.6) L 07/24/18 21:00 Thrombin Time 14.6 Sec. (15.1-19.6) L 07/24/18 21:00 Sodium 137 mmol/L (137-145) 07/24/18 21:00 Potassium 4.1 mmol/L (3.6-5.0) 07/24/18 21:00 Chloride 103.7 mmol/L (98-107) 07/24/18 21:00 Carbon Dioxide 19 mmol/L (22-30) L 07/24/18 21:00 Anion Gap 18 mmol/L 07/24/18 21:00 BUN 16 mg/dL (7-17) 07/24/18 21:00 Creatinine 0.9 mg/dL (0.7-1.2) 07/24/18 21:00 Estimated GFR > 60 ml/min 07/24/18 21:00 BUN/Creatinine Ratio 18 % 07/24/18 21:00 Glucose 211 mg/dL (65-100) H 07/24/18 21:00 POC Glucose 165 (70-105) H 07/26/18 17:18 Calcium 9.7 mg/dL (8.4-10.2) 07/24/18 21:00 Troponin T < 0.010 ng/mL (0.00-0.029) 07/24/18 21:00 Triglycerides 121 mg/dL (2-149) 07/25/18 06:35 Cholesterol 141 mg/dL (50-199) 07/25/18 06:35 LDL Cholesterol Direct 78 mg/dL (50-130) 07/25/18 06:35 HDL Cholesterol 53 mg/dL (40-59) 07/25/18 06:35 Cholesterol/HDL Ratio 2.66 % 07/25/18 06:35 - Imaging and Cardiology CT scan - abdomen: image reviewed (DIVERTICULOSIS)
[2018-07-26] MEDS: DILAUDID IV PRN ×2 (18:30→23:08)
[2018-07-26] MEDS: COLACE PO SCH (23:08)
[2018-07-27] MEDS: APRESOLINE IV PRN (03:05)
[2018-07-27] MEDS: HumaLOG SUB-Q SCH ×4 (07:35→23:18)
--- NOTE | 2018-07-27 08:41 | Consultation ---
History of Present Illness - [facility] Consult date: 07/26/18 Consult reason: low back pain History of present illness: 78-year-old woman with a history of breast cancer, hypertension, diabetes, hyperlipidemia comes emergency room for evaluation of left-sided weakness and slurred speech to started on Wednesday. The patient had refused to come to the hospital at the onset of her symptoms. Patient has a history of chronic low back pain which she underwent a spinal cord stimulator back in March 2018 according to the patient's daughter her condition has gotten worse since the implantation Past History Past Medical History: diabetes, hypertension, hyperlipidemia Past Surgical History: mastectomy (breast cancer surgery 2 years ago followed by chemotherapy and radiation, finished chemotherapy a year ago), Other (lumbar spine surgery in [facility] 8-10 years ago. Implantation of right hip TENS unit apparently some years ago which was redone this past year in [place] by orthopedist Dr. 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 denies: smoking, alcohol abuse, prescription drug abuse, IV drug use Family history: hypertension (several siblings), stroke (mother and sister and sororal niece (the one with epilepsy)), other (epilepsy and sororal niece. Brain aneurysm in her daughter.) Medications and Allergies Allergies Allergy/AdvReac Type Severity Reaction Status Date / Time No Known Allergies Allergy Verified 07/24/18 23:08 Home Medications Medication Instructions Recorded Confirmed Last Taken Type Anastrozole [Arimidex] 1 mg PO QDAY 07/24/18 07/24/18 Unknown History Atorvastatin Calcium 80 mg PO DAILY 07/24/18 07/24/18 Unknown History Carvedilol [Coreg] 25 mg PO BID 07/24/18 07/24/18 Unknown History Insulin Aspart [Novolog] 25 units SQ BID 07/24/18 07/24/18 Unknown History Insulin Detemir [Levemir VIAL] 0 unit SQ QHS 07/24/18 07/24/18 Unknown History Milk Thistle 240 mg PO DAILY 07/24/18 07/24/18 Unknown History Naproxen 500 mg PO Q12HR 07/24/18 07/24/18 Unknown History Sertraline [Zoloft] 25 mg PO QDAY 07/24/18 07/24/18 Unknown History Active Meds: Active Medications Alprazolam (Xanax) 2 mg PO SALES REPRESENTATIVE [employer]AC[employer] [facility] Atorvastatin Calcium (Lipitor) 80 mg PO DAILY [facility] Last Admin: 07/26/18 10:43 Dose: 80 mg Clopidogrel Bisulfate (Plavix) 75 mg PO QDAY [facility] Last Admin: 07/26/18 10:43 Dose: 75 mg Dextrose (D50w (25gm) Syringe) 50 ml IV PRN PRN PRN Reason: Hypoglycemia Docusate Sodium (Colace) 100 mg PO BID [facility] Last Admin: 07/26/18 23:08 Dose: 100 mg Enoxaparin Sodium (Lovenox) 40 mg SUB-Q QDAY@1000 [facility] Last Admin: 07/26/18 10:44 Dose: 40 mg Hydralazine HCl (Apresoline) 5 mg IV Q6HR PRN PRN Reason: Hypertension Last Admin: 07/27/18 03:05 Dose: 5 mg Hydromorphone HCl (Dilaudid) 0.25 mg IV Q3H PRN PRN Reason: Pain , Severe (7-10) Last Admin: 07/26/18 23:08 Dose: 0.25 mg Insulin Human Lispro (Humalog) 0 unit SUB-Q [facility]; Protocol Last Admin: 07/27/18 07:35 Dose: 4 unit Miscellaneous Medication (Anastrozole [Arimidex]) 1 mg PO QDAY [facility] Ondansetron HCl (Zofran) 4 mg IV Q4H PRN PRN Reason: Nausea And Vomiting Last Admin: 07/26/18 23:08 Dose: 4 mg Sertraline HCl (Zoloft) 25 mg PO QDAY [facility] Last Admin: 07/26/18 10:42 Dose: 25 mg Sodium Chloride (Sodium Chloride Flush Syringe 10 Ml) 10 ml IV PRN PRN PRN Reason: LINE FLUSH Physical Examination - Physical exam Narrative exam: On physical examination he have a elderly obese female in no apparent distress unless the patient is attempting to change positions in her bed significant musculoskeletal findings related to the lumbar spine. 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
[2018-07-27] MEDS: DILAUDID IV PRN ×3 (09:05→22:33)
[2018-07-27] MEDS: LOVENOX SUB-Q SCH (09:11)
[2018-07-27] MEDS: COLACE PO SCH ×2 (09:11→22:34)
[2018-07-27] MEDS: PLAVIX PO SCH (09:11)
[2018-07-27] MEDS: ZOLOFT PO SCH (09:12)
--- NOTE | 2018-07-27 15:16 | Progress Note ---
Assessment and Plan Assessment and plan: 78-year-old woman with a history of breast cancer, hypertension, diabetes, hyperlipidemia comes emergency room for evaluation of left-sided weakness and slurred speech to started on Wednesday. The patient had refused to come to the hospital at the onset of her symptoms. 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 most most prominent at the L2-3 level with central canal stenosis at the L2-3 level - Chronic more than acute per family -Orthopedics to assess the functionality of the implanted tens unit - Pain management and bowel regimen - per Ortho discussed treatment options with the patient and her daughters recommend a trial nerve block in the lumbar spine with possible radiofrequency ablation if nerve blocks are successful Diabetes mellitus - Sliding scale insulin Hypertension - controlled, on hydralazine PRN when it is too high Dementia - Supportive care DVT prophylaxis - On Lovenox Disposition - Patient may need rehab once work up and evaluation is completed -Case discussed with orthopedic surgeon plan to Discharge home per family request post nerve block in 2 days. History Interval history: Patient seen and examined, improved some but still with limited mobility due to back pain 05/03. Hospitalist Physical - Physical exam Narrative exam: VITAL SIGNS: Reviewed. GENERAL: The patient appeared well nourished and normally developed. Morbidly obese. Vital signs as documented. HEAD: No signs of head trauma. EYES: Pupils are equal. Extraocular motions intact. EARS: Hearing grossly intact. MOUTH: Oropharynx is normal. NECK: No adenopathy, no JVD. CHEST: Chest with clear breath sounds bilaterally. No wheezes, rales, or rhonchi. CARDIAC: Regular rate and rhythm. S1 and S2, without murmurs, gallops, or rubs. VASCULAR: No Edema. Peripheral pulses normal and equal in all extremities. ABDOMEN: Soft, without detectable tenderness. No sign of distention. No rebound or guarding, and no masses palpated. Bowel Sounds normal. MUSCULOSKELETAL: Tender over the lumbar spine area. hypoactive patient's strength was 3 over 5 in and lower extremities . Extremities without clubbing, cyanosis or edema. NEUROLOGIC EXAM: Alert and oriented x 3. No focal sensory or strength deficits. Speech normal. Follows commands. PSYCHIATRIC: Mood normal. SKIN: No rash or lesions. - Constitutional Vitals: Temp Pulse Resp BP Pulse Ox 99.2 F 86 18 152/59 96 07/27/18 13:15 07/27/18 13:15 07/27/18 13:15 07/27/18 13:15 07/27/18 13:15 Results - Labs CBC & Chem 7: 07/24/18 22:19 07/24/18 21:00 Labs: Laboratory Last Values WBC 6.6 K/mm3 (4.5-11.0) 07/24/18 22: RBC 4.04 M/mm3 (3.65-5.03) 07/24/18 22:19 Hgb 12.2 gm/dl (10.1-14.3) 07/24/18 22:19 Hct 36.9 % (30.3-42.9) 07/24/18 22:19 MCV 91 fl (79-97) 07/24/18 22:19 MCH 30 pg (28-32) 07/24/18 22:19 MCHC 33 % (30-34) 07/24/18 22:19 RDW 14.7 % (13.2-15.2) 07/24/18 22:19 Plt Count 161 K/mm3 (140-440) 07/24/18 22:19 Lymph % (Auto) 31.0 % (13.4-35.0) 07/24/18 22:19 [place] % (Auto) 13.5 % (0.0-7.3) H 07/24/18 22:19 Eos % (Auto) 2.8 % (0.0-4.3) 07/24/18 22:19 Baso % (Auto) 0.8 % (0.0-1.8) 07/24/18 22:19 Lymph # 2.0 K/mm3 (1.2-5.4) 07/24/18 22:19 [place] # 0.9 K/mm3 (0.0-0.8) H 07/24/18 22:19 Eos # 0.2 K/mm3 (0.0-0.4) 07/24/18 22:19 Baso # 0.1 K/mm3 (0.0-0.1) 07/24/18 22:19 Add Manual Diff TNR 07/24/18 21:00 Seg Neutrophils % 51.9 % (40.0-70.0) 07/24/18 22:19 Seg Neutrophils # 3.4 K/mm3 (1.8-7.7) 07/24/18 22:19 PT 14.1 Sec. (12.2-14.9) 07/24/18 21:00 INR 1.04 (0.87-1.13) 07/24/18 21:00 APTT < 20.0 Sec. (24.2-36.6) L 07/24/18 21:00 Thrombin Time 14.6 Sec. (15.1-19.6) L 07/24/18 21:00 Sodium 137 mmol/L (137-145) 07/24/18 21:00 Potassium 4.1 mmol/L (3.6-5.0) 07/24/18 21:00 Chloride 103.7 mmol/L (98-107) 07/24/18 21:00 Carbon Dioxide 19 mmol/L (22-30) L 07/24/18 21:00 Anion Gap 18 mmol/L 07/24/18 21:00 BUN 16 mg/dL (7-17) 07/24/18 21:00 Creatinine 0.9 mg/dL (0.7-1.2) 07/24/18 21:00 Estimated GFR > 60 ml/min 07/24/18 21:00 BUN/Creatinine Ratio 18 % 07/24/18 21:00 Glucose 211 mg/dL (65-100) H 07/24/18 21:00 POC Glucose 254 (70-105) H 07/27/18 11:05 Calcium 9.7 mg/dL (8.4-10.2) 07/24/18 21:00 Troponin T < 0.010 ng/mL (0.00-0.029) 07/24/18 21:00 Triglycerides 121 mg/dL (2-149) 07/25/18 06:35 Cholesterol 141 mg/dL (50-199) 07/25/18 06:35 LDL Cholesterol Direct 78 mg/dL (50-130) 07/25/18 06:35 HDL Cholesterol 53 mg/dL (40-59) 07/25/18 06:35 Cholesterol/HDL Ratio 2.66 % 07/25/18 06:35
[2018-07-28 05:20] LABS: Hematocrit 36.7 % (30.3-42.9); Hemoglobin 12.6 gm/dl (10.1-14.3); Mean Corpuscular HGB Conc 34 % (30-34); Mean Corpuscular Hemoglobin 31 pg (28-32); Mean Corpuscular Volume 91 fl (79-97); Platelet Count 145 K/mm3 (140-440); Red Blood Count 4.03 M/mm3 (3.65-5.03)
[2018-07-28 05:31] LABS: BUN/Creatinine Ratio 19; Blood Urea Nitrogen 13 mg/dL (7-17); Calcium 9.4 mg/dL (8.4-10.2); Hemolysis Index 9
--- NOTE | 2018-07-28 08:01 | Progress Note ---
Assessment and Plan Assessment and plan: 78-year-old woman with a history of breast cancer, hypertension, diabetes, hyperlipidemia comes emergency room for evaluation of left-sided weakness and slurred speech to started on Wednesday. The patient had refused to come to the hospital at the onset of her symptoms. 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 Hypertension URGENCY - controlled, on hydralazine PRN when it is too high - Restart home dose BB Dementia - Supportive care DVT prophylaxis - On Lovenox Disposition - Patient may need rehab once work up and evaluation is completed -Case discussed with orthopedic surgeon plan to Discharge home per family request post nerve block in 1 days. History Interval history: Patient seen and examined, improved some but still with limited mobility due to back pain 03/03. Hospitalist Physical - Physical exam Narrative exam: VITAL SIGNS: Reviewed. GENERAL: The patient appeared well nourished and normally developed. Morbidly obese. Vital signs as documented. HEAD: No signs of head trauma. EYES: Pupils are equal. Extraocular motions intact. EARS: Hearing grossly intact. MOUTH: Oropharynx is normal. NECK: No adenopathy, no JVD. CHEST: Chest with clear breath sounds bilaterally. No wheezes, rales, or rhonchi. CARDIAC: Regular rate and rhythm. S1 and S2, without murmurs, gallops, or rubs. VASCULAR: No Edema. Peripheral pulses normal and equal in all extremities. ABDOMEN: Soft, without detectable tenderness. No sign of distention. No rebound or guarding, and no masses palpated. Bowel Sounds normal. MUSCULOSKELETAL: Tender over the lumbar spine area. hypoactive patient's strength was 3 over 5 in and lower extremities . Extremities without clubbing, cyanosis or edema. NEUROLOGIC EXAM: Alert and oriented x 3. No focal sensory or strength deficits. Speech normal. Follows commands. PSYCHIATRIC: Mood normal. SKIN: No rash or lesions. - Constitutional Vitals: Temp Pulse Resp BP Pulse Ox 98.1 F 73 18 195/70 95 07/28/18 07:57 07/28/18 07:57 07/28/18 07:57 07/28/18 07:57 07/28/18 07:57 Results - Labs CBC & Chem 7: 07/28/18 04:45 07/28/18 04:45 Labs: Laboratory Last Values WBC 7.1 K/mm3 (4.5-11.0) 07/28/18 04:45 RBC 4.03 M/mm3 (3.65-5.03) 07/28/18 04:45 Hgb 12.6 gm/dl (10.1-14.3) 07/28/18 04:45 Hct 36.7 % (30.3-42.9) 07/28/18 04:45 MCV 91 fl (79-97) 07/28/18 04:45 MCH 31 pg (28-32) 07/28/18 04:45 MCHC 34 % (30-34) 07/28/18 04:45 RDW 14.0 % (13.2-15.2) 07/28/18 04:45 Plt Count 145 K/mm3 (140-440) 07/28/18 04:45 Lymph % (Auto) 31.0 % (13.4-35.0) 07/24/18 22:19 [place] % (Auto) 13.5 % (0.0-7.3) H 07/24/18 22:19 Eos % (Auto) 2.8 % (0.0-4.3) 07/24/18 22:19 Baso % (Auto) 0.8 % (0.0-1.8) 07/24/18 22:19 Lymph # 2.0 K/mm3 (1.2-5.4) 07/24/18 22:19 [place] # 0.9 K/mm3 (0.0-0.8) H 07/24/18 22:19 Eos # 0.2 K/mm3 (0.0-0.4) 07/24/18 22:19 Baso # 0.1 K/mm3 (0.0-0.1) 07/24/18 22:19 Add Manual Diff TNR 07/24/18 21:00 Seg Neutrophils % 51.9 % (40.0-70.0) 07/24/18 22:19 Seg Neutrophils # 3.4 K/mm3 (1.8-7.7) 07/24/18 22:19 PT 14.1 Sec. (12.2-14.9) 07/24/18 21:00 INR 1.04 (0.87-1.13) 07/24/18 21:00 APTT < 20.0 Sec. (24.2-36.6) L 07/24/18 21:00 Thrombin Time 14.6 Sec. (15.1-19.6) L 07/24/18 21:00 Sodium 137 mmol/L (137-145) 07/28/18 04:45 Potassium 4.2 mmol/L (3.6-5.0) 07/28/18 04:45 Chloride 100.4 mmol/L (98-107) 07/28/18 04:45 Carbon Dioxide 24 mmol/L (22-30) 07/28/18 04:45 Anion Gap 17 mmol/L 07/28/18 04:45 BUN 13 mg/dL (7-17) 07/28/18 04:45 Creatinine 0.7 mg/dL (0.7-1.2) 07/28/18 04:45 Estimated GFR > 60 ml/min 07/28/18 04:45 BUN/Creatinine Ratio 19 % 07/28/18 04:45 Glucose 243 mg/dL (65-100) H 07/28/18 04:45 POC Glucose 277 (70-105) H 07/28/18 07:29 Calcium 9.4 mg/dL (8.4-10.2) 07/28/18 04:45 Troponin T < 0.010 ng/mL (0.00-0.029) 07/24/18 21:00 Triglycerides 121 mg/dL (2-149) 07/25/18 06:35 Cholesterol 141 mg/dL (50-199) 07/25/18 06:35 LDL Cholesterol Direct 78 mg/dL (50-130) 07/25/18 06:35 HDL Cholesterol 53 mg/dL (40-59) 07/25/18 06:35 Cholesterol/HDL Ratio 2.66 % 07/25/18 06:35
[2018-07-28] MEDS: HumaLOG SUB-Q SCH ×5 (08:04→22:52)
[2018-07-28] MEDS: DILAUDID IV PRN ×2 (08:13→19:38)
[2018-07-28] MEDS ORDERED: INSULIN ASPART 25 UNIT SQ SCH (10:00)
[2018-07-28] MEDS: PLAVIX PO SCH (10:33)
[2018-07-28] MEDS: ZOLOFT PO SCH (10:34)
[2018-07-28] MEDS: COLACE PO SCH ×2 (10:34→21:49)
[2018-07-28] MEDS: LOVENOX SUB-Q SCH (10:34)
[2018-07-28] MEDS: NAPROSYN PO SCH ×2 (10:35→21:48)
[2018-07-28] MEDS: COREG PO SCH ×2 (11:00→21:49)
[2018-07-28] MEDS: APRESOLINE IV PRN ×2 (18:13→19:39)
--- NOTE | 2018-07-29 07:57 | Discharge Summary ---
Providers - Providers Date of Admission: 07/24/18 23:19 Attending physician: GEO PEREZ MD 07/24/18 Consult to Physician [CONS] Routine Comment: Consulting Provider: DELGADO ROJO Physician Instructions: Reason For Exam: cva 07/24/18 23:39 Occupational Therapy Evaluate and Treat [CONS] Routine Comment: Reason For Exam: Neuro deficits Physical Therapy Evaluation and Treat [CONS] Routine Comment: Reason For Exam: Neuro deficits 07/25/18 17:45 Consult to Physician [CONS] Routine Comment: left mess. cell phone @ [id number]/ [employer] Consulting Provider: MICAELA BOYLE Physician Instructions: Family said dosent't appear to be working Reason For Exam: assess implanted tens unit Hospitalization Reason for admission: TIA Condition: Stable Hospital course: 78-year-old woman with a history of breast cancer, hypertension, diabetes, hyperlipidemia comes emergency room for evaluation of left-sided weakness and slurred speech to started on Wednesday. The patient had refused to come to the hospital at the onset of her symptoms she was seen by neurology and repeat imaging studies did not reveal new CVA patient was continued on plavix and statin. she continued to have severe back pain from chronic central canal stenosis L2-L3, The patient also was seen by ortho and is for nerve block today Patients BP remains elevated when she is in pain and improves with control of the pain. she will follow at [facility] per recommendation by neurology to evaluate her Tens unit which we feel may not be working due to the degree of pain that she is in. Acute CVA- Ruled out TIA Acute on chronic Low back pain-Chronic low back pain secondary to moderate-to- severe degenerative disc disease Central canal stenosis at the L2-3 level - per Ortho discussed treatment options with the patient and her daughters recommend a trial nerve block in the lumbar spine with possible radiofrequency ablation if nerve blocks are successful Diabetes mellitus Hypertension URGENCY Dementia Disposition: [id number] HOME [facility] Time spent for discharge: 35 MINS Core Measure Documentation - Palliative Care Palliative Care/ Comfort Measures: Not Applicable - Core Measures Any of the following diagnoses?: none - VTE Discharge Requirements Deep Vein Thrombosis/Pulmonary Embolism Present on Admission: No Exam - Physical Exam Narrative exam: VITAL SIGNS: Reviewed. GENERAL: The patient appeared well nourished and normally developed. Morbidly obese. Vital signs as documented. HEAD: No signs of head trauma. EYES: Pupils are equal. Extraocular motions intact. EARS: Hearing grossly intact. MOUTH: Oropharynx is normal. NECK: No adenopathy, no JVD. CHEST: Chest with clear breath sounds bilaterally. No wheezes, rales, or rhonchi. CARDIAC: Regular rate and rhythm. S1 and S2, without murmurs, gallops, or rubs. VASCULAR: No Edema. Peripheral pulses normal and equal in all extremities. ABDOMEN: Soft, without detectable tenderness. No sign of distention. No rebound or guarding, and no masses palpated. Bowel Sounds normal. MUSCULOSKELETAL: Tender over the lumbar spine area. hypoactive patient's strength was 3 over 5 in and lower extremities . Extremities without clubbing, cyanosis or edema. NEUROLOGIC EXAM: Alert and oriented x 3. No focal sensory or strength deficits. Speech normal. Follows commands. PSYCHIATRIC: Mood normal. SKIN: No rash or lesions. - Constitutional Vitals: Temp Pulse Resp BP Pulse Ox 98.6 F 80 18 142/56 100 07/29/18 02:00 07/29/18 02:00 07/29/18 02:00 07/29/18 02:00 07/29/18 02:00 Plan Activity: advance as tolerated, fall precautions Diet: diabetic Special Instructions: record daily BP diary, record blood sugar diary Additional Instructions: [facility] TENS [facility] Follow up with: KEHINDE CHIN [Other] - 3-5 Days MICAELA BOYLE MD [Staff Physician] - 7 Days Prescriptions: Clopidogrel [Plavix] 75 mg PO QDAY #30 tablet
[2018-07-29] MEDS: HumaLOG SUB-Q SCH ×5 (08:00→22:45)
[2018-07-29] MEDS: PLAVIX PO SCH (10:00)
[2018-07-29] MEDS: NAPROSYN PO SCH ×2 (10:06→22:46)
[2018-07-29] MEDS: COREG PO SCH ×2 (10:07→22:46)
[2018-07-29] MEDS: ZOLOFT PO SCH (10:07)
[2018-07-29] MEDS: COLACE PO SCH ×2 (10:08→22:46)
[2018-07-29] MEDS: LOVENOX SUB-Q SCH (10:09)
[2018-07-29] MEDS ORDERED: XYLOCAINE 1% 20 mL ONE ×2 (14:00→14:45)
[2018-07-29] MEDS ORDERED: XYLOCAINE 1%/ EPI 1:100,000 INFILTRATI ONE (14:46)
--- NOTE | 2018-07-29 16:44 | Progress Note ---
Assessment and Plan Assessment and plan: 78-year-old woman with a history of breast cancer, hypertension, diabetes, hyperlipidemia comes emergency room for evaluation of left-sided weakness and slurred speech to started on Wednesday. The patient had refused to come to the hospital at the onset of her symptoms. Patients BP remains elevated when she is in pain and improves with control of the pain. she will follow at [facility] per recommendation by neurology to evaluate her Tens unit which we feel may not be working due to the degree of pain that she is in. I recommended SNF but family initially refused, Today patient is sitting up for the first time, and in less pain and plan was for discharge but family appealed the discharge. 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 Hypertension URGENCY - controlled, on hydralazine PRN when it is too high - Restart home dose BB Dementia - Supportive care DVT prophylaxis - On Lovenox Disposition - Patient may need rehab once work up and evaluation is completed -Case discussed with orthopedic surgeon plan to Discharge home per family request post nerve block in 1 days. History Interval history: Patient seen and examined, improved sitting up on the bedside Hospitalist Physical - Physical exam Narrative exam: VITAL SIGNS: Reviewed. GENERAL: The patient appeared well nourished and normally developed. Morbidly obese. Vital signs as documented. HEAD: No signs of head trauma. EYES: Pupils are equal. Extraocular motions intact. EARS: Hearing grossly intact. MOUTH: Oropharynx is normal. NECK: No adenopathy, no JVD. CHEST: Chest with clear breath sounds bilaterally. No wheezes, rales, or rhonchi. CARDIAC: Regular rate and rhythm. S1 and S2, without murmurs, gallops, or rubs. VASCULAR: No Edema. Peripheral pulses normal and equal in all extremities. ABDOMEN: Soft, without detectable tenderness. No sign of distention. No rebound or guarding, and no masses palpated. Bowel Sounds normal. MUSCULOSKELETAL: Tender over the lumbar spine area. hypoactive patient's strength was 3 over 5 in and lower extremities . Extremities without clubbing, cyanosis or edema. NEUROLOGIC EXAM: Alert and oriented x 3. No focal sensory or strength deficits. Speech normal. Follows commands. PSYCHIATRIC: Mood normal. SKIN: No rash or lesions. - Constitutional Vitals: Temp Pulse Resp BP Pulse Ox 98.7 F 76 14 160/57 98 07/29/18 07:24 07/29/18 10:07 07/29/18 10:06 07/29/18 10:07 07/29/18 10:00 Results - Labs CBC & Chem 7: 07/28/18 04:45 07/28/18 04:45 Labs: Laboratory Last Values WBC 7.1 K/mm3 (4.5-11.0) 07/28/18 04:45 RBC 4.03 M/mm3 (3.65-5.03) 07/28/18 04:45 Hgb 12.6 gm/dl (10.1-14.3) 07/28/18 04:45 Hct 36.7 % (30.3-42.9) 07/28/18 04:45 MCV 91 fl (79-97) 07/28/18 04:45 MCH 31 pg (28-32) 07/28/18 04:45 MCHC 34 % (30-34) 07/28/18 04:45 RDW 14.0 % (13.2-15.2) 07/28/18 04:45 Plt Count 145 K/mm3 (140-440) 07/28/18 04:45 Lymph % (Auto) 31.0 % (13.4-35.0) 07/24/18 22:19 [place] % (Auto) 13.5 % (0.0-7.3) H 07/24/18 22:19 Eos % (Auto) 2.8 % (0.0-4.3) 07/24/18 22:19 Baso % (Auto) 0.8 % (0.0-1.8) 07/24/18 22:19 Lymph # 2.0 K/mm3 (1.2-5.4) 07/24/18 22:19 [place] # 0.9 K/mm3 (0.0-0.8) H 07/24/18 22:19 Eos # 0.2 K/mm3 (0.0-0.4) 07/24/18 22:19 Baso # 0.1 K/mm3 (0.0-0.1) 07/24/18 22:19 Add Manual Diff TNR 07/24/18 21:00 Seg Neutrophils % 51.9 % (40.0-70.0) 07/24/18 22:19 Seg Neutrophils # 3.4 K/mm3 (1.8-7.7) 07/24/18 22:19 PT 14.1 Sec. (12.2-14.9) 07/24/18 21:00 INR 1.04 (0.87-1.13) 07/24/18 21:00 APTT < 20.0 Sec. (24.2-36.6) L 07/24/18 21:00 Thrombin Time 14.6 Sec. (15.1-19.6) L 07/24/18 21:00 Sodium 137 mmol/L (137-145) 07/28/18 04:45 Potassium 4.2 mmol/L (3.6-5.0) 07/28/18 04:45 Chloride 100.4 mmol/L (98-107) 07/28/18 04:45 Carbon Dioxide 24 mmol/L (22-30) 07/28/18 04:45 Anion Gap 17 mmol/L 07/28/18 04:45 BUN 13 mg/dL (7-17) 07/28/18 04:45 Creatinine 0.7 mg/dL (0.7-1.2) 07/28/18 04:45 Estimated GFR > 60 ml/min 07/28/18 04:45 BUN/Creatinine Ratio 19 % 07/28/18 04:45 Glucose 243 mg/dL (65-100) H 07/28/18 04:45 POC Glucose 296 (70-105) H 07/29/18 16:13 Calcium 9.4 mg/dL (8.4-10.2) 07/28/18 04:45 Troponin T < 0.010 ng/mL (0.00-0.029) 07/24/18 21:00 Triglycerides 121 mg/dL (2-149) 07/25/18 06:35 Cholesterol 141 mg/dL (50-199) 07/25/18 06:35 LDL Cholesterol Direct 78 mg/dL (50-130) 07/25/18 06:35 HDL Cholesterol 53 mg/dL (40-59) 07/25/18 06:35 Cholesterol/HDL Ratio 2.66 % 07/25/18 06:35
[2018-07-29] MEDS ORDERED: HumaLOG SUB-Q SCH (16:50)
--- NOTE | 2018-07-29 17:04 | Procedure Note ---
Date of procedure: 07/29/18 Pre-op diagnosis: chronic low back pain Post-op diagnosis: same Procedure: Lumbar facet block left L2-5 Procedure Under local anesthesia in the radiology suite, the lumbar spine prepped and draped, 1% lidocaine injected into the subcutaneous tissues overlying the left lumbar areas of L2 thru L5 level. Under C-arm fluroscopy the needle placement confirmed followed by injection of lidocaine and marcaine mixture to the facet joints. No complication noted and patient tolerated procedure. She was sent back to [facility] unit in stable condition Anesthesia: none Surgeon: MICAELA BOYLE Estimated blood loss: none Pathology: none Condition: stable Disposition: floor
[2018-07-30] MEDS ORDERED: NITRO-BID 2% TP ONE (07:05)
[2018-07-30] MEDS ORDERED: MILK OF MAGNESIA PO PRN (09:31)
[2018-07-30] MEDS: LOVENOX SUB-Q SCH (09:33)
[2018-07-30] MEDS: PLAVIX PO SCH (09:33)
[2018-07-30] MEDS: ZOLOFT PO SCH (09:34)
[2018-07-30] MEDS: COLACE PO SCH ×2 (09:34→22:22)
[2018-07-30] MEDS: HumaLOG SUB-Q SCH ×5 (09:35→22:24)
[2018-07-30] MEDS: COREG PO SCH ×2 (09:37→22:21)
[2018-07-30] MEDS: LANTUS SUB-Q SCH ×2 (09:43→22:23)
[2018-07-30] MEDS: NAPROSYN PO SCH ×2 (09:43→22:22)
[2018-07-30] MEDS: CEPHULAC PO SCH ×2 (12:19→22:22)
--- NOTE | 2018-07-30 14:21 | Progress Note ---
Assessment and Plan Assessment and plan: TIA, rule out acute stroke - CT head showed hypodense lesion in the right brian suggestive of subacute versus chronic infarct - Carotid Doppler is <50% stenosis, echo showed EF of 60-65% with mild diastolic dysfunction - We can't do MRI because of Tens unit. 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 Diabetes mellitus type with hyperglycemia - insulin regimen adjusted, monitor Hypertensive emergency with SBP>180 - On coreg, amlodipine added - Continue when necessary hydralazine Dementia - Supportive care Constipation -On laxatives DVT prophylaxis - On Lovenox Disposition: For possible discharge in a.m. if clinically stable History Interval history: Patient complaining of constipation. Hospitalist Physical - Constitutional Vitals: Temp Pulse Resp BP Pulse Ox 98.8 F 74 18 173/61 97 07/30/18 07:31 07/30/18 07:31 07/30/18 07:31 07/30/18 09:37 07/30/18 07:31 General appearance: Present: no acute distress - EENT Eyes: Present: PERRL, EOM intact ENT: clear oral mucosa, other (impaired hearing) - Neck Neck: Present: supple - Respiratory Respiratory: bilateral: CTA - Cardiovascular Rhythm: regular Heart Sounds: Present: S1 & S2 - Extremities Extremities: No edema - Abdominal General gastrointestinal: soft, tender (mild and generalized), normal bowel sounds - Neurologic Neurologic: CNII-XII intact Results - Labs CBC & Chem 7: 07/28/18 04:45 07/28/18 04:45 Labs: Laboratory Last Values WBC 7.1 K/mm3 (4.5-11.0) 07/28/18 04:45 RBC 4.03 M/mm3 (3.65-5.03) 07/28/18 04:45 Hgb 12.6 gm/dl (10.1-14.3) 07/28/18 04:45 Hct 36.7 % (30.3-42.9) 07/28/18 04:45 MCV 91 fl (79-97) 07/28/18 04:45 MCH 31 pg (28-32) 07/28/18 04:45 MCHC 34 % (30-34) 07/28/18 04:45 RDW 14.0 % (13.2-15.2) 07/28/18 04:45 Plt Count 145 K/mm3 (140-440) 07/28/18 04:45 Lymph % (Auto) 31.0 % (13.4-35.0) 07/24/18 22:19 [place] % (Auto) 13.5 % (0.0-7.3) H 07/24/18 22:19 Eos % (Auto) 2.8 % (0.0-4.3) 07/24/18 22:19 Baso % (Auto) 0.8 % (0.0-1.8) 07/24/18 22:19 Lymph # 2.0 K/mm3 (1.2-5.4) 07/24/18 22:19 [place] # 0.9 K/mm3 (0.0-0.8) H 07/24/18 22:19 Eos # 0.2 K/mm3 (0.0-0.4) 07/24/18 22:19 Baso # 0.1 K/mm3 (0.0-0.1) 07/24/18 22:19 Add Manual Diff TNR 07/24/18 21:00 Seg Neutrophils % 51.9 % (40.0-70.0) 07/24/18 22:19 Seg Neutrophils # 3.4 K/mm3 (1.8-7.7) 07/24/18 22:19 PT 14.1 Sec. (12.2-14.9) 07/24/18 21:00 INR 1.04 (0.87-1.13) 07/24/18 21:00 APTT < 20.0 Sec. (24.2-36.6) L 07/24/18 21:00 Thrombin Time 14.6 Sec. (15.1-19.6) L 07/24/18 21:00 Sodium 137 mmol/L (137-145) 07/28/18 04:45 Potassium 4.2 mmol/L (3.6-5.0) 07/28/18 04:45 Chloride 100.4 mmol/L (98-107) 07/28/18 04:45 Carbon Dioxide 24 mmol/L (22-30) 07/28/18 04:45 Anion Gap 17 mmol/L 07/28/18 04:45 BUN 13 mg/dL (7-17) 07/28/18 04:45 Creatinine 0.7 mg/dL (0.7-1.2) 07/28/18 04:45 Estimated GFR > 60 ml/min 07/28/18 04:45 BUN/Creatinine Ratio 19 % 07/28/18 04:45 Glucose 243 mg/dL (65-100) H 07/28/18 04:45 POC Glucose 322 (70-105) H 07/30/18 11:37 Calcium 9.4 mg/dL (8.4-10.2) 07/28/18 04:45 Troponin T < 0.010 ng/mL (0.00-0.029) 07/24/18 21:00 Triglycerides 121 mg/dL (2-149) 07/25/18 06:35 Cholesterol 141 mg/dL (50-199) 07/25/18 06:35 LDL Cholesterol Direct 78 mg/dL (50-130) 07/25/18 06:35 HDL Cholesterol 53 mg/dL (40-59) 07/25/18 06:35 Cholesterol/HDL Ratio 2.66 % 07/25/18 06:35
[2018-07-30] MEDS: NORVASC PO SCH (17:47)
[2018-07-31 07:47] VITALS: BP 158/53
[2018-07-31] MEDS: HumaLOG SUB-Q SCH ×2 (08:42→11:23)
--- NOTE | 2018-07-31 08:56 | Progress Note ---
Assessment and Plan Assessment and plan: 78-year-old woman with a history of breast cancer, hypertension, diabetes, hyperlipidemia comes emergency room for evaluation of left-sided weakness and slurred speech to started on Wednesday. The patient had refused to come to the hospital at the onset of her symptoms. Patients BP remains elevated when she is in pain and improves with control of the pain. she will follow at [facility] per recommendation by neurology to evaluate her Tens unit which we feel may not be working due to the degree of pain that she is in. I recommended SNF but family initially refused, Today patient is sitting up for the first time, and in less pain and plan was for discharge but family appealed the discharge. 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 still elevated. Will adjust dose. Hypertension URGENCY - controlled, on hydralazine PRN when it is too high - Restart home dose BB Dementia - Supportive care DVT prophylaxis - On Lovenox Disposition - Patient may need rehab once work up and evaluation is completed -Case discussed with orthopedic surgeon plan to Discharge home per family request post nerve block -Awaiting placement and discharge appeal. Hospitalist Physical - Constitutional Vitals: Temp Pulse Resp BP Pulse Ox 98.6 F 71 18 158/53 95 07/31/18 07:21 10 07:21 07/31/18 07:21 07/31/18 07:21 07/31/18 08:26 General appearance: Present: no acute distress Results - Labs CBC & Chem 7: 07/28/18 04:45 07/28/18 04:45 Labs: Laboratory Last Values WBC 7.1 K/mm3 (4.5-11.0) 07/28/18 04:45 RBC 4.03 M/mm3 (3.65-5.03) 07/28/18 04:45 Hgb 12.6 gm/dl (10.1-14.3) 07/28/18 04:45 Hct 36.7 % (30.3-42.9) 07/28/18 04:45 MCV 91 fl (79-97) 07/28/18 04:45 MCH 31 pg (28-32) 07/28/18 04:45 MCHC 34 % (30-34) 07/28/18 04:45 RDW 14.0 % (13.2-15.2) 07/28/18 04:45 Plt Count 145 K/mm3 (140-440) 07/28/18 04:45 Lymph % (Auto) 31.0 % (13.4-35.0) 07/24/18 22:19 Blanco % (Auto) 13.5 % (0.0-7.3) H 07/24/18 22:19 Eos % (Auto) 2.8 % (0.0-4.3) 07/24/18 22:19 Baso % (Auto) 0.8 % (0.0-1.8) 07/24/18 22:19 Lymph # 2.0 K/mm3 (1.2-5.4) 07/24/18 22:19 Blanco # 0.9 K/mm3 (0.0-0.8) H 07/24/18 22:19 Eos # 0.2 K/mm3 (0.0-0.4) 07/24/18 22:19 Baso # 0.1 K/mm3 (0.0-0.1) 07/24/18 22:19 Add Manual Diff TNR 07/24/18 21:00 Seg Neutrophils % 51.9 % (40.0-70.0) 07/24/18 22:19 Seg Neutrophils # 3.4 K/mm3 (1.8-7.7) 07/24/18 22:19 PT 14.1 Sec. (12.2-14.9) 07/24/18 21:00 INR 1.04 (0.87-1.13) 07/24/18 21:00 APTT < 20.0 Sec. (24.2-36.6) L 07/24/18 21:00 Thrombin Time 14.6 Sec. (15.1-19.6) L 07/24/18 21:00 Sodium 137 mmol/L (137-145) 07/28/18 04:45 Potassium 4.2 mmol/L (3.6-5.0) 07/28/18 04:45 Chloride 100.4 mmol/L (98-107) 07/28/18 04:45 Carbon Dioxide 24 mmol/L (22-30) 07/28/18 04:45 Anion Gap 17 mmol/L 07/28/18 04:45 BUN 13 mg/dL (7-17) 07/28/18 04:45 Creatinine 0.7 mg/dL (0.7-1.2) 07/28/18 04:45 Estimated GFR > 60 ml/min 07/28/18 04:45 BUN/Creatinine Ratio 19 % 07/28/18 04:45 Glucose 243 mg/dL (65-100) H 07/28/18 04:45 POC Glucose 249 (70-105) H 07/31/18 07:21 Calcium 9.4 mg/dL (8.4-10.2) 07/28/18 04:45 Troponin T < 0.010 ng/mL (0.00-0.029) 07/24/18 21:00 Triglycerides 121 mg/dL (2-149) 07/25/18 06:35 Cholesterol 141 mg/dL (50-199) 07/25/18 06:35 LDL Cholesterol Direct 78 mg/dL (50-130) 07/25/18 06:35 HDL Cholesterol 53 mg/dL (40-59) 07/25/18 06:35 Cholesterol/HDL Ratio 2.66 % 07/25/18 06:35
--- NOTE | 2018-07-31 09:41 | Discharge Summary ---
Providers - Providers Date of Admission: 07/24/18 23:19 Attending physician: GEO PEREZ MD 07/24/18 Consult to Physician [CONS] Routine Comment: Consulting Provider: DELGADO ROJO Physician Instructions: Reason For Exam: cva 07/24/18 23:39 Occupational Therapy Evaluate and Treat [CONS] Routine Comment: Reason For Exam: Neuro deficits Physical Therapy Evaluation and Treat [CONS] Routine Comment: Reason For Exam: Neuro deficits 07/25/18 17:45 Consult to Physician [CONS] Routine Comment: left mess. cell phone @ [id number]/ Telepathy Consulting Provider: MICAELA BOYLE Physician Instructions: Family said dosent't appear to be working Reason For Exam: assess implanted tens unit Hospitalization Reason for admission: 35 mins Condition: Stable Hospital course: 78-year-old woman with a history of breast cancer, hypertension, diabetes, hyperlipidemia comes emergency room for evaluation of left-sided weakness and slurred speech to started on Wednesday. The patient had refused to come to the hospital at the onset of her symptoms. Patients BP remains elevated when she is in pain and improves with control of the pain. she will follow at [facility] per recommendation by neurology to evaluate her Tens unit which we feel may not be working due to the degree of pain that she is in. Discussed care extensively with patients daughter. Elevated BP worse when pain not controlled. Requires to be closely monitored Daughter refused SNF placement She is ambulating with walker independently post procedure Acute CVA- Ruled out TIA - CT head showed hypodense lesion in the right brian subacute versus chronic - Carotid Doppler is a 50% stenosis, echo and CTA is pending, we can't do MRI because of Tens unit - Repeat CT negative - Speech and swallow evaluation, PT/OT, Neurology consult NOTED, - On Plavix and statin Acute on chronic Low back pain-Chronic low back pain secondary to moderate-to- severe degenerative disc disease - CT scan of the abdomen and pelvis were reviewed show 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 most most prominent at the L2-3 level with Central canal stenosis at the L2-3 level - Chronic more than acute per family -Orthopedics to assess the functionality of the implanted tens unit - Pain management and bowel regimen - per Ortho discussed treatment options with the patient and her daughters recommend a trial nerve block in the lumbar spine with possible radiofrequency ablation if nerve blocks are successful Diabetes mellitus - Sliding scale insulin - adjust novolog Hypertension URGENCY - controlled, on hydralazine PRN when it is too high - Restart home dose BB Dementia - Supportive care Disposition: DC/TX-06 HOME [facility] Time spent for discharge: 35 mins Core Measure Documentation - Palliative Care Palliative Care/ Comfort Measures: Not Applicable - Core Measures Any of the following diagnoses?: none - VTE Discharge Requirements Deep Vein Thrombosis/Pulmonary Embolism Present on Admission: No Exam - Physical Exam Narrative exam: VITAL SIGNS: Reviewed. GENERAL: The patient appeared well nourished and normally developed. Morbidly obese. Vital signs as documented. HEAD: No signs of head trauma. EYES: Pupils are equal. Extraocular motions intact. EARS: Hearing grossly intact. MOUTH: Oropharynx is normal. NECK: No adenopathy, no JVD. CHEST: Chest with clear breath sounds bilaterally. No wheezes, rales, or rhonchi. CARDIAC: Regular rate and rhythm. S1 and S2, without murmurs, gallops, or rubs. VASCULAR: No Edema. Peripheral pulses normal and equal in all extremities. ABDOMEN: Soft, without detectable tenderness. No sign of distention. No rebound or guarding, and no masses palpated. Bowel Sounds normal. MUSCULOSKELETAL: Tender over the lumbar spine area. hypoactive patient's strength was 3 over 5 in and lower extremities . Extremities without clubbing, cyanosis or edema. NEUROLOGIC EXAM: Alert and oriented x 3. No focal sensory or strength deficits. Speech normal. Follows commands. PSYCHIATRIC: Mood normal. SKIN: No rash or lesions. - Constitutional Vitals: Temp Pulse Resp BP Pulse Ox 98.6 F 71 18 158/53 95 07/31/18 07:21 07/31/18 07:21 07/31/18 07:21 07/31/18 07:21 07/31/18 08:26 Plan Activity: advance as tolerated, fall precautions Diet: diabetic Special Instructions: record daily BP diary, record blood sugar diary Follow up with: KEHNIDE CHIN [Other] - 3-5 Days MICAELA BOYLE MD [Staff Physician] - 7 Days Prescriptions: amLODIPine [Norvasc] 10 mg PO QDAY #30 tablet Clopidogrel [Plavix] 75 mg PO QDAY #30 tablet Lactulose [Cephulac] 20 gm PO BID #30 oral.liqd oxyCODONE /ACETAMINOPHEN [Percocet 5/325] 1 tab PO Q6HR PRN #14 tablet PRN Reason: Pain
[2018-07-31] MEDS: LOVENOX SUB-Q SCH (09:45)
[2018-07-31] MEDS: CEPHULAC PO SCH (09:47)
[2018-07-31] MEDS: COLACE PO SCH (09:48)
[2018-07-31] MEDS: ZOLOFT PO SCH (09:48)
[2018-07-31] MEDS: PLAVIX PO SCH (09:48)
[2018-07-31] MEDS: NORVASC PO SCH (09:49)
[2018-07-31] MEDS: NAPROSYN PO SCH (09:50)
[2018-07-31] MEDS: COREG PO SCH (09:50)
--- NOTE | 2018-07-31 10:38 | Progress Note ---
Assessment and Plan s/p facet nerve blocks doing well will schedule outpatient lumbar radiofrequency nerve ablation soon Subjective Date of service: 07/31/18 Interval history: states back pain much improved since nerve blocks, able to ambulate with walker Objective Vital signs: Vital Signs - 12hr 07/31/18 07/31/18 07/31/18 02:50 07:21 08:26 Temperature 98.6 F 98.6 F Pulse Rate 68 71 Respiratory 20 18 Rate Blood Pressure 152/57 158/53 O2 Sat by Pulse 100 96 95 Oximetry 07/31/18 07/31/18 09:49 09:50 Temperature Pulse Rate 71 71 Respiratory Rate Blood Pressure 158/53 158/53 O2 Sat by Pulse Oximetry - Labs CBC & BMP: 07/28/18 04:45 07/28/18 04:45 Labs: Abnormal lab results 07/30/18 07/30/18 07/30/18 Range/Units 11:37 16:28 21:24 POC Glucose 322 H 363 H 235 H (70-105) 07/31/18 Range/Units 07:21 POC Glucose 249 H (70-105)
[2018-07-31] MEDS ORDERED: LANTUS SUB-Q SCH (11:00)
--- NOTE | 2018-08-01 07:34 | Fluoroscopy Report ---
FLUOROSCOPY GUIDANCE OF NEEDLE PLACEMENT History: Intractable low back pain. Findings: Fluoroscopy was provided by radiology during lumbar facet injection by the orthopedist. 2 fluoroscopic images of the lumbar region were obtained demonstrating needle placement at the L4-5 facet joint presumably on the right side. Please correlate with the procedural report as needed. Impression: Lumbar facet block/injection.
--- NOTE | 2018-08-02 12:29 | Vascular Lab Report ---
CAROTID DUPLEX STUDY: RIGHT PSVEDV CCA [id number] CCA DIST:[id number] ICA PROX:[id number] ICA MID:[id number] ICA DIST:[id number] ECA: 928 VERT: 83 9 LEFT PSVEDV CCA [id number] CCA DIST:[id number] ICA PROX:[id number] ICA MID:8815 ICA DIST:[id number] ECA: 740 VERT: 71 6 REASON FOR EXAM: Stroke. COMMENTS ON THE RIGHT: Doppler frequency analysis is consistent with 16 to 49 percent diameter reduction of the internal carotid artery. A small amount of plaque is seen. The common carotid artery is patent. The external carotid artery is patent. The vertebral artery has antegrade flow. COMMENTS ON THE LEFT: Doppler frequency analysis is consistent with 16 to 49 percent diameter reduction of the internal carotid artery. A moderate amount of plaque is seen. The common carotid artery is patent. The external carotid artery is patent. The vertebral artery has antegrade flow. IMPRESSION: Less than 50% diameter reduction in the internal carotid arteries bilaterally. A moderate amount of plaque seen in the left internal carotid artery. Consider CT angiography if clinically appropriate.
== END 2018-07-31 11:35 | disposition home health service (06) | DRG 552 ==
LOC: ED 19:49 → 4A 23:19 → 2B-ACE 07-26 15:55
PROVIDERS: ADMIT Internal Medicine; ATTEND Internal Medicine
PROC: 3E0R3BZ Introduction of Anesthetic Agent into Spinal Canal, Percutaneous Approach (ICD-10-PCS; principal; 2018-07-29)
PROC: BR161ZZ Fluoroscopy of Lumbar Facet Joint(s) using Low Osmolar Contrast (ICD-10-PCS; 2018-07-29)
DX: M51.36 Other intervertebral disc degeneration, lumbar region (principal); G45.9 Transient cerebral ischemic attack, unspecified; Z68.41 Body mass index [BMI] 40.0-44.9, adult; G81.94 Hemiplegia, unspecified affecting left nondominant side; M48.061 Spinal stenosis, lumbar region without neurogenic claudication; G31.9 Degenerative disease of nervous system, unspecified; E66.01 Morbid (severe) obesity due to excess calories; I16.0 Hypertensive urgency; I10 Essential (primary) hypertension; E78.5 Hyperlipidemia, unspecified; R26.9 Unspecified abnormalities of gait and mobility; M19.90 Unspecified osteoarthritis, unspecified site; G89.29 Other chronic pain; F03.90 Unspecified dementia, unspecified severity, without behavioral disturbance, psychotic disturbance, mood disturbance, and anxiety; M54.5 Low back pain; E11.65 Type 2 diabetes mellitus with hyperglycemia; K59.00 Constipation, unspecified; Z71.3 Dietary counseling and surveillance; Z90.710 Acquired absence of both cervix and uterus; Z79.4 Long term (current) use of insulin; Z82.49 Family history of ischemic heart disease and other diseases of the circulatory system; Z85.3 Personal history of malignant neoplasm of breast
CPT/HCPCS: 36415; 70450; 70496; 70498; 71045; 74176; 77002; 80048; 80061; 82962; 84484; 85025; 85027; 85610; 85670; 85730; 90686; 93005; 93010; 93306; 93880; 96374; 96375; 99291; A9270-GY; G8978-GP; G8979-GP; G8987-GO; G8988-GO; G8989-GO; J0360; J1170; J1650; J1815; J2270; J2405; Q9967

== ENCOUNTER 2019-04-26 18:15 | Emergency (ER) | payer MEDICARE ==
[2019-04-26] MEDS ORDERED: D50W (25GM) Vial IV ONE ×2 (18:31)
--- NOTE | 2019-04-26 18:31 | Emergency Department Report ---
ED General Adult HPI - General Chief complaint: Hypoglycemia Stated complaint: HYPOGLYCEMIA Time Seen by Provider: 04/26/19 18:21 Source: EMS Mode of arrival: Stretcher Limitations: Altered Mental Status - History of Present Illness Initial comments: Mrs. Isaac is a very pleasant 79-year-old female who presents from home via EMS with unresponsive status. Blood glucose in route 22. After 12.5 g of dextrose, repeat blood sugar 49. Blood glucose then decreased to 27. She was nonverbal during the transportation. She has a small forehead hematoma. The hematoma occurred while under the care of paramedics. She struck her head on the rail of the stretcher during transfer. Daughter at the bedside states that she takes a 50 unit dose of long acting insulin in the morning. She also takes sulfonylurea glyburide. She ate breakfast this morning. She only ate a small snack for lunch. No changes in her medications. Paramedics stated that she has been evaluated by EMS on previous occasion for hypoglycemia. Normally transportation is not need ed. -: Sudden, This afternoon Improves with: medication Worsens with: other (lack of food) Associated Symptoms: confusion - Related Data Home Medications Medication Instructions Recorded Confirmed Last Taken Anastrozole [Arimidex] 1 mg PO QDAY 07/24/18 07/24/18 Unknown Atorvastatin Calcium 80 mg PO DAILY 07/24/18 07/24/18 Unknown Carvedilol [Coreg] 25 mg PO BID 07/24/18 07/24/18 Unknown Insulin Detemir [Levemir VIAL] 0 unit SQ QHS 07/24/18 07/24/18 Unknown Milk Thistle 240 mg PO DAILY 07/24/18 07/24/18 Unknown Naproxen 500 mg PO Q12HR 07/24/18 07/24/18 Unknown Sertraline [Zoloft] 25 mg PO QDAY 07/24/18 07/24/18 Unknown Previous Rx's Medication Instructions Recorded Last Taken Type Clopidogrel [Plavix] 75 mg PO QDAY #30 tablet 07/29/18 Unknown Rx Insulin Aspart [NovoLOG 100 30 units SQ BID 30 Days 07/31/18 Unknown Rx UNITS/ML VIAL] Lactulose [Cephulac] 20 gm PO BID #30 oral.liqd 07/31/18 Unknown Rx amLODIPine [Norvasc] 10 mg PO QDAY #30 tablet 07/31/18 Unknown Rx oxyCODONE /ACETAMINOPHEN [Percocet 1 tab PO Q6HR PRN #14 tablet 07/31/18 Unknown Rx 5/325] Allergies Allergy/AdvReac Type Severity Reaction Status Date / Time No Known Allergies Allergy Verified 07/24/18 23:08 ED Review of Systems ROS: Stated complaint: HYPOGLYCEMIA Other details as noted in HPI Comment: All other systems reviewed and negative Constitutional: denies: diaphoresis, fever, malaise Cardiovascular: denies: chest pain Endocrine: denies: excessive sweating ED Past Medical Hx - Past Medical History Previous Medical History?: Yes Hx Hypertension: Yes Hx Diabetes: Yes Hx of Cancer: Yes (breast) Hx Arthritis: Yes Additional medical history: High Cholesterol, Chronic Pain - Surgical History Past Surgical History?: Yes Additional Surgical History: Hysterectomy. Implanted TENS unit Right hip - Social History Smoking Status: Never Smoker - Medications Home Medications: Home Medications Medication Instructions Recorded Confirmed Last Taken Type Anastrozole [Arimidex] 1 mg PO QDAY 07/24/18 07/24/18 Unknown History Atorvastatin Calcium 80 mg PO DAILY 07/24/18 07/24/18 Unknown History Carvedilol [Coreg] 25 mg PO BID 07/24/18 07/24/18 Unknown History Insulin Detemir [Levemir VIAL] 0 unit SQ QHS 07/24/18 07/24/18 Unknown History Milk Thistle 240 mg PO DAILY 07/24/18 07/24/18 Unknown History Naproxen 500 mg PO Q12HR 07/24/18 07/24/18 Unknown History Sertraline [Zoloft] 25 mg PO QDAY 07/24/18 07/24/18 Unknown History Clopidogrel [Plavix] 75 mg PO QDAY #30 tablet 07/29/18 Unknown Rx Insulin Aspart [NovoLOG 100 30 units SQ BID 30 Days 07/31/18 07/24/18 Unknown Rx UNITS/ML VIAL] Lactulose [Cephulac] 20 gm PO BID #30 oral.liqd 07/31/18 Unknown Rx amLODIPine [Norvasc] 10 mg PO QDAY #30 tablet 07/31/18 Unknown Rx oxyCODONE /ACETAMINOPHEN [Percocet 1 tab PO Q6HR PRN #14 tablet 07/31/18 Unknown Rx 5/325] ED Physical Exam - General Limitations: Altered Mental Status General appearance: lethargic - Head Head exam: Present: atraumatic, normocephalic - Eye Eye exam: Present: normal appearance - ENT ENT exam: Present: mucous membranes moist - Neck Neck exam: Present: normal inspection, full ROM - Respiratory Respiratory exam: Present: normal lung sounds bilaterally. Absent: respiratory distress, wheezes, rales, rhonchi - Cardiovascular Cardiovascular Exam: Present: regular rate, normal rhythm, normal heart sounds. Absent: systolic murmur, diastolic murmur, rubs, gallop - GI/Abdominal GI/Abdominal exam: Present: soft, normal bowel sounds. Absent: distended, ten derness, guarding, rebound - Extremities Exam Extremities exam: Present: normal inspection - Back Exam Back exam: Present: normal inspection - Neurological Exam Neurological exam: Present: altered - Skin Skin exam: Present: warm, dry, intact, normal color. Absent: rash ED Course Vital Signs 04/26/19 21:20 Pulse Rate 77 Respiratory 15 Rate Blood Pressure 161/77 [Left] O2 Sat by Pulse 98 Oximetry ED Medical Decision Making - Lab Data Result diagrams: 04/26/19 18:37 04/26/19 18:37 - Medical Decision Making Mrs. Isaac presents with acute metabolic encephalopathy due to severe hypoglycemia. Upon arrival I immediately asked nurse to administer 2 ampules of dextrose D50, In approximately one minute time, Ms. Isaac became more alert. Within several minutes, she was alert and oriented 3. She was appropriate. She moved all extremities. She did eat snack provided by nurse. She was observed in the ER for 4 hours. No resultant hypoglycemia. Discharged home in the care of her daughter. Critical Care Time: Yes Critical care time in (mins) excluding proc time.: 40 Critical care attestation.: If time is entered above; I have spent that time in minutes in the direct care of this critically ill patient, excluding procedure time. 40 minutes of critical care time excluding procedures were used in the care of the patient. Upon arrival I directed resuscitation. I obtained history from paramedics and family members. I reviewed electronic record. Patient required multiple assessments and interventions. I reviewed the electronic medical record. I was concerned for CVA, respiratory depression, airway compromise. ED Disposition Clinical Impression: Hypoglycemia due to insulin, Hypoglycemia secondary to sulfonylurea, Acute metabolic encephalopathy Disposition: DC-01 TO HOME OR SELFCARE Is pt being admited?: No Does the pt Need Aspirin: No Condition: Stable Instructions: Diabetic Hypoglycemia (ED)
[2019-04-26 18:52] LABS: Basophils % (Auto) 0.4 % (0.0-1.8); Eosinophils # (Auto) 0.1 K/mm3 (0.0-0.4); Eosinophils % (Auto) 1.4 % (0.0-4.3); Hematocrit 38.5 % (30.3-42.9); Hemoglobin 13.3 gm/dl (10.1-14.3); Lymphocytes # (Auto) 1.5 K/mm3 (1.2-5.4); Mean Corpuscular HGB Conc 34 % (30-34); Mean Corpuscular Volume 90 fl (79-97); Monocytes # (Auto) 0.6 K/mm3 (0.0-0.8); Monocytes % (Auto) 7.5 % (0.0-7.3); Platelet Count 186 K/mm3 (140-440); Red Blood Count 4.27 M/mm3 (3.65-5.03); Red Cell Distribution Width 14.7 % (13.2-15.2)
[2019-04-26 19:24] LABS: BUN/Creatinine Ratio 11; Blood Urea Nitrogen 9 mg/dL (7-17); Calcium 10.1 mg/dL (8.4-10.2); Hemolysis Index 10
[2019-04-26 21:21] VITALS: BP 161/77
== END 2019-04-26 22:59 | disposition home or self-care (01) ==
LOC: ED 18:15
DX: E11.649 Type 2 diabetes mellitus with hypoglycemia without coma (principal); G93.41 Metabolic encephalopathy; I10 Essential (primary) hypertension; Z85.3 Personal history of malignant neoplasm of breast; M19.90 Unspecified osteoarthritis, unspecified site; E78.00 Pure hypercholesterolemia, unspecified; Z90.710 Acquired absence of both cervix and uterus; Z79.899 Other long term (current) drug therapy
CPT/HCPCS: 36415; 80048; 82962; 85025